=== PATIENT | female | born 1945 | race Caucasian/White ===

== ENCOUNTER 2018-03-08 13:12 | Emergency (ER) | payer MEDICARE, MEDICAID ==
[~2018-03-08 13:12] MED LIST: ALBU18HF2 IH; AMIO200T40 PO; AZIT250T PO; CLOT12CR TP; PRED10TA PO; QUET25TA PO; RIVA20TA PO; ROFL500T7 PO
[2018-03-08 13:15] VITALS: BP 146/86
[2018-03-08] MEDS ORDERED: ipratropium/albuterol 3ml nebule NEB ONE (14:15)
[2018-03-08] MEDS ORDERED: acetaminophen 325mg tablet PO ONE (14:15)
[2018-03-08 14:35] LABS: BASOPHILS % (AUTO) 0.5 % (0-1); EOSINOPHILS # (AUTO) 0.1 X10'3 (0-0.9); HEMATOCRIT 38.4 % (35.0-45.0); HEMOGLOBIN 12.9 g/dl (12.0-16.0); LYMPHOCYTES # (AUTO) 0.9 X10'3 (1.1-4.8); LYMPHOCYTES % (AUTO) 15.9 % (21-51); MEAN CORPUSCULAR HEMOGLOBIN 29.6 PG (27.0-31.0); MEAN CORPUSCULAR HGB CONC 33.5 % (33.0-36.5); MEAN CORPUSCULAR VOLUME 88.3 FL (78-98); MEAN PLATELET VOLUME 7.4 FL (7.4-10.4); MONOCYTES # (AUTO) 0.5 X10'3 (0-0.9); MONOCYTES % (AUTO) 8.2 % (2-12); NEUTROPHILS # (AUTO) 4.2 X10'3 (1.8-7.7); NEUTROPHILS % (AUTO) 73.4 % (42-75); PLATELET COUNT 305 X10'3 (140-440); RED BLOOD COUNT 4.35 X10'6 (4.20-5.60); RED CELL DISTRIBUTION WIDTH 14.3 % (11.5-14.5); WHITE BLOOD COUNT 5.7 X10'3 (4.5-11.0)
[2018-03-08 14:46] LABS: PARTIAL THROMBOPLASTIN TIME 35 SECONDS (22-32); PROTHROMBIN TIME 10.7 SECONDS (9.0-12.0)
[2018-03-08 14:55] LABS: ALANINE AMINOTRANSFERASE 22 U/L (12-78); ALBUMIN 2.8 G/DL (3.4-5.0); ALBUMIN/GLOBULIN RATIO 0.7 (1.1-1.5); ALKALINE PHOSPHATASE 102 IU/L (46-116); ANION GAP 8 (8-16); ASPARTATE AMINO TRANSFERASE 29 U/L (10-37); BILIRUBIN,TOTAL 0.4 MG/DL (0.1-1.0); BLOOD UREA NITROGEN 15 MG/DL (7-18); BUN/CREATININE RATIO 20.5 (6.6-38.0); CALCIUM 8.4 MG/DL (8.5-10.1); CHLORIDE 100 MMOL/L (99-107); CREATININE 0.73 MG/DL (0.40-0.90); GLUCOSE 103 MG/DL (70-104); MAGNESIUM 1.6 MG/DL (1.5-2.4); POTASSIUM 4.2 MMOL/L (3.5-5.1); SODIUM 136 MMOL/L (135-145); TOTAL PROTEIN 6.8 G/DL (6.4-8.2); eGFR 78 ML/MIN
[2018-03-08] MEDS ORDERED: levoFLOXACIN 750MG TABLET PO ONE (15:00)
[2018-03-08] MEDS ORDERED: predniSONE 20 mg tablet PO ONE (15:00)
[2018-03-08] MEDS ORDERED: LEVO500T89 PO (15:02)
[2018-03-08] MEDS ORDERED: PRED20TA PO (15:02)
== END 2018-03-08 15:16 | disposition home or self-care (01) ==
LOC: ER 13:12
DX: J44.9 Chronic obstructive pulmonary disease, unspecified (principal); M79.652 Pain in left thigh; E78.00 Pure hypercholesterolemia, unspecified; K21.9 Gastro-esophageal reflux disease without esophagitis; M19.90 Unspecified osteoarthritis, unspecified site; F17.200 Nicotine dependence, unspecified, uncomplicated; F15.90 Other stimulant use, unspecified, uncomplicated; Z90.710 Acquired absence of both cervix and uterus
CPT/HCPCS: 36415; 71045; 73502; 80053; 83605; 83735; 84145; 85025; 85610; 85730; 87040; 93005; 94640; 94760; 99285; J7512

== ENCOUNTER 2018-04-28 13:04 | Emergency (ER) | payer MEDICARE, MEDICAID ==
[~2018-04-28] VITALS: Ht 162.6 cm; Wt 50.3 kg
[2018-04-28 13:48] VITALS: BP 149/46
[2018-04-28] MEDS ORDERED: cephalexin 500mg capsule PO ONE (14:20)
[2018-04-28] MEDS ORDERED: CEPH500C5 PO (14:23)
== END 2018-04-28 14:49 | disposition home or self-care (01) ==
LOC: ER 13:05
DX: L03.114 Cellulitis of left upper limb (principal); L03.113 Cellulitis of right upper limb; E78.00 Pure hypercholesterolemia, unspecified; J44.9 Chronic obstructive pulmonary disease, unspecified; K21.9 Gastro-esophageal reflux disease without esophagitis; M19.90 Unspecified osteoarthritis, unspecified site; M06.9 Rheumatoid arthritis, unspecified; F15.90 Other stimulant use, unspecified, uncomplicated; Z90.710 Acquired absence of both cervix and uterus; Z79.2 Long term (current) use of antibiotics; Z79.899 Other long term (current) drug therapy; Z60.2 Problems related to living alone
CPT/HCPCS: 99284

== ENCOUNTER 2018-07-08 12:16 | Inpatient (IN) | payer MEDICARE, MEDICAID ==
[~2018-07-08] VITALS: Ht 160 cm; Wt 46.9 kg
[2018-07-08] MEDS ORDERED: levoFLOXACIN-Levaquin 750MG/D5 150 ML IV ONE (12:20)
[2018-07-08] MEDS ORDERED: normal saline 1000ML IV soln IV ONE (12:20)
[2018-07-08 13:33] LABS: HEMATOCRIT 34.4 % (35.0-45.0); HEMOGLOBIN 11.3 g/dl (12.0-16.0); MEAN CORPUSCULAR HEMOGLOBIN 28.8 PG (27.0-31.0); MEAN CORPUSCULAR HGB CONC 32.7 % (33.0-36.5); MEAN CORPUSCULAR VOLUME 88.2 FL (78-98); RED BLOOD COUNT 3.91 X10'6 (4.20-5.60); RED CELL DISTRIBUTION WIDTH 16.1 % (11.5-14.5); WHITE BLOOD COUNT 2.6 X10'3 (4.5-11.0)
[2018-07-08 13:34] LABS: BASOPHILS % (AUTO) 0.7 % (0-1); EOSINOPHILS # (AUTO) 0.1 X10'3 (0-0.9); EOSINOPHILS % (AUTO) 5.8 % (0-6); LYMPHOCYTES # (AUTO) 0.4 X10'3 (1.1-4.8); LYMPHOCYTES % (AUTO) 16.5 % (21-51); MEAN PLATELET VOLUME 8.1 FL (7.4-10.4); MONOCYTES # (AUTO) 0.3 X10'3 (0-0.9); MONOCYTES % (AUTO) 10.5 % (2-12); NEUTROPHILS # (AUTO) 1.7 X10'3 (1.8-7.7); NEUTROPHILS % (AUTO) 66.5 % (42-75); PLATELET COUNT 158 X10'3 (140-440)
[2018-07-08 13:51] LABS: ALANINE AMINOTRANSFERASE 22 U/L (12-78); ALBUMIN 2.4 G/DL (3.4-5.0); ALBUMIN/GLOBULIN RATIO 0.6 (1.1-1.5); ALKALINE PHOSPHATASE 82 IU/L (46-116); ANION GAP 10 (8-16); ASPARTATE AMINO TRANSFERASE 30 U/L (10-37); BILIRUBIN,TOTAL 0.3 MG/DL (0.1-1.0); BLOOD UREA NITROGEN 18 MG/DL (7-18); BUN/CREATININE RATIO 28.6 (6.6-38.0); CALCIUM 7.2 MG/DL (8.5-10.1); CHLORIDE 106 MMOL/L (99-107); CREATININE 0.63 MG/DL (0.40-0.90); GLUCOSE 97 MG/DL (70-104); SODIUM 140 MMOL/L (135-145); TOTAL CARBON DIOXIDE 24.1 MMOL/L (24-32); TOTAL PROTEIN 6.2 G/DL (6.4-8.2); eGFR > 90 ML/MIN
[2018-07-08 14:00] LABS: MAGNESIUM 1.6 MG/DL (1.5-2.4); TROPONIN I < 0.04 NG/ML (0.0-0.05)
[2018-07-08 14:02] LABS: INR 1.1 INR; PROTHROMBIN TIME 10.9 SECONDS (9.0-12.0)
[2018-07-08] MEDS ORDERED: ipratropium/albuterol 3ml nebule NEB ONE (14:05)
[2018-07-08] MEDS ORDERED: oseltamivir phos 75mg capsule PO ONE ×2 (14:05→17:00)
[2018-07-08] MEDS ORDERED: methylPREDNISolone sod succ 125mg/2ml vial IV ONE ×3 (14:05→17:15)
[2018-07-08 14:09] LABS: CLARITY,URINE SLIGHTLY CLOUDY (Clear); COLOR,URINE YELLOW (Yellow); GLUCOSE, URINE NEGATIVE (Neg); KETONES,URINE NEGATIVE (Neg); LEUKOCYTE ESTERASE ,URINE NEGATIVE (Neg); NITRITES, URINE NEGATIVE (Neg); OCCULT BLOOD,URINE MODERATE (Neg); PROTEIN,URINE 30 mg/dl (Neg); UROBILINOGEN,URINE >=8.0 E.U/dL (0.2-1.0)
[2018-07-08 14:10] LABS: PLATELET ESTIMATE NORMAL; TOTAL CELLS COUNTED 100
[2018-07-08 14:11] LABS: ANISOCYTOSIS 1+; TOXIC GRANULATION 1+
[2018-07-08 14:41] LABS: UA COLLECTION TYPE OTHER
--- NOTE | 2018-07-08 14:55 | NUR ---
PT SLEEPING WELL. MUCH MORE COMFORTABLE AT THIS TIME.
[2018-07-08 14:57] LABS: BACTERIA,URINE 1+ /HPF (Neg); MUCUS STRANDS NONE SEEN /LPF (Neg); SQUAMOUS EPITHELIAL CELL,UR MANY /LPF (FEW); WBC,URINE NONE SEEN /HPF (0-4)
--- NOTE | 2018-07-08 15:48 | NUR ---
hospitalist seeing pt
[2018-07-08] MEDS ORDERED: acetaminophen 325mg tablet PO PRN (16:10)
[2018-07-08] MEDS ORDERED: magnesium 4gm in 100ml NS 100 ML IV PRN (16:10)
[2018-07-08] MEDS ORDERED: potassium Cl 40MEQ/NS 500ml 500 ML IV PRN ×2 (16:10)
[2018-07-08] MEDS ORDERED: potassium Cl 20 mEq SR tablet PO PRN ×2 (16:10)
[2018-07-08] MEDS ORDERED: magnesium Cl slow-release 64mg tablet PO PRN (16:10)
[2018-07-08] MEDS ORDERED: ondansetron/PF 4mg/2ml inj IV PRN (16:10)
[2018-07-08] MEDS: normal saline 1000ml 1,000 ML IV SCH (16:22)
--- NOTE | 2018-07-08 19:10 | NUR ---
Patient in room PCU 3022. I have received report from Allen BENTON and had the opportunity to ask questions and assume patient care.
[2018-07-08] MEDS ORDERED: RIVA20TA PO (19:12)
--- NOTE | 2018-07-08 19:20 | NUR ---
Patient arrived on PCU.
[2018-07-08 19:30] VITALS: BP 160/85
[2018-07-08] MEDS: heparin, porcine 5000 units/ml vial SQ SCH (21:29)
[2018-07-08 23:00] VITALS: BP 161/97
--- NOTE | 2018-07-09 00:30 | NUR ---
New telephone order from Dr. Sung. Spoke to Dr. Sung regarding patient blood pressure of 161/97, and new onset atrial flutter in 130s. Dr. Sung ordered Cardizem 120mg PO Once Now.
[2018-07-09] MEDS ORDERED: diltiazem CD 120mg capsule (once-daily) PO ONE (00:40)
[2018-07-09] MEDS: normal saline 1000ml 1,000 ML IV SCH (02:06)
[2018-07-09 03:00] VITALS: BP 144/98
--- NOTE | 2018-07-09 06:00 | NUR ---
Patient in room U 3022. I have received report from SERENITY Palacios and had the opportunity to ask questions and assume patient care. Addendum: 07/09/18 at 0655 by Stephania Keenan RN Amended: Links added.
--- NOTE | 2018-07-09 06:25 | NUR ---
Problems reprioritized. Patient report given, questions answered & plan of care reviewed with Stephania BENTON.
[2018-07-09 07:00] VITALS: BP 133/87
[2018-07-09 07:03] LABS: HEMATOCRIT 39.8 % (35.0-45.0); HEMOGLOBIN 13.1 g/dl (12.0-16.0); MEAN CORPUSCULAR HEMOGLOBIN 28.9 PG (27.0-31.0); MEAN CORPUSCULAR VOLUME 87.6 FL (78-98); MEAN PLATELET VOLUME 8.6 FL (7.4-10.4); PLATELET COUNT 189 X10'3 (140-440); RED BLOOD COUNT 4.55 X10'6 (4.20-5.60); RED CELL DISTRIBUTION WIDTH 15.6 % (11.5-14.5)
[2018-07-09 07:12] LABS: ALBUMIN 2.6 G/DL (3.4-5.0); ANION GAP 10 (8-16); BLOOD UREA NITROGEN 12 MG/DL (7-18); BUN/CREATININE RATIO 17.6 (6.6-38.0); CHLORIDE 103 MMOL/L (99-107); CREATININE 0.68 MG/DL (0.40-0.90); GLUCOSE 140 MG/DL (70-104); MAGNESIUM 1.5 MG/DL (1.5-2.4); POTASSIUM 3.7 MMOL/L (3.5-5.1); SODIUM 138 MMOL/L (135-145); TOTAL CARBON DIOXIDE 24.7 MMOL/L (24-32); eGFR 84 ML/MIN
[2018-07-09] MEDS ORDERED: azithromycin/NS 500mg/250ml 250 ML IV SCH (08:00)
[2018-07-09] MEDS: K and/or MAG REPLACEMENT MC SCH (08:00)
[2018-07-09] MEDS: CefTRIAXone/D5W-Rocephin 1gm 50 ML IV SCH (08:07)
[2018-07-09] MEDS: heparin, porcine 5000 units/ml vial SQ SCH (08:09)
[2018-07-09] MEDS ORDERED: pneumococcal 23-VAL P-sac vacc 25 mcg/0.5ml vial IMVAC ONE (10:00)
[2018-07-09 11:00] VITALS: BP 126/88
[2018-07-09 11:01] LABS: ANISOCYTOSIS 1+; PLATELET ESTIMATE NORMAL; TOTAL CELLS COUNTED 100
[2018-07-09] MEDS: ipratropium/albuterol 3ml nebule NEB SCH ×4 (12:30→23:49)
[2018-07-09 15:00] VITALS: BP 145/73
[2018-07-09] MEDS: oseltamivir phos 75mg capsule PO SCH ×2 (15:44→19:58)
[2018-07-09] MEDS: rivaroxaban 20mg tablet PO SCH (15:44)
[2018-07-09] MEDS: guaiFENesin 200 MG/10 ML oral syrup UD cup PO SCH ×2 (15:44→19:58)
[2018-07-09] MEDS: methylPREDNISolone sod succ 125mg/2ml vial IV SCH ×2 (15:45→19:58)
[2018-07-09] MEDS: Potassium Cl inj 20 MEQ in normal saline 1000ml 1,000 ML IV SCH (15:45)
[2018-07-09 18:00] VITALS: BP 154/77
--- NOTE | 2018-07-09 18:29 | NUR ---
Problems reprioritized. Patient report given, questions answered & plan of care reviewed with SERENITY Freed. Addendum: 07/09/18 at 1829 by Stephania Keenan RN Amended: Links added.
--- NOTE | 2018-07-09 18:39 | NUR ---
Patient in room PCU 3022. I have received report from Stephania BENTON and had the opportunity to ask questions and assume patient care.
[2018-07-09] MEDS: QUEtiapine 25mg tablet PO SCH (21:28)
[2018-07-09 22:00] VITALS: BP 141/69
[2018-07-10 02:00] VITALS: BP 137/65
[2018-07-10] MEDS: methylPREDNISolone sod succ 125mg/2ml vial IV SCH ×3 (02:09→16:16)
[2018-07-10] MEDS: guaiFENesin 200 MG/10 ML oral syrup UD cup PO SCH ×4 (02:09→20:22)
[2018-07-10] MEDS: ipratropium/albuterol 3ml nebule NEB SCH ×6 (03:35→23:55)
[2018-07-10] MEDS: Potassium Cl inj 20 MEQ in normal saline 1000ml 1,000 ML IV SCH ×2 (05:33→18:03)
[2018-07-10 06:00] VITALS: BP 160/88
--- NOTE | 2018-07-10 06:26 | NUR ---
Patient in room PCU 3022. I have received report from Lourdes BENTON and had the opportunity to ask questions and assume patient care.
[2018-07-10 07:03] LABS: ALBUMIN 2.5 G/DL (3.4-5.0); ANION GAP 10 (8-16); BLOOD UREA NITROGEN 20 MG/DL (7-18); BUN/CREATININE RATIO 31.7 (6.6-38.0); CALCIUM 7.9 MG/DL (8.5-10.1); CHLORIDE 106 MMOL/L (99-107); CREATININE 0.63 MG/DL (0.40-0.90); GLUCOSE 150 MG/DL (70-104); MAGNESIUM 1.7 MG/DL (1.5-2.4); POTASSIUM 3.8 MMOL/L (3.5-5.1); SODIUM 141 MMOL/L (135-145); eGFR > 90 ML/MIN
[2018-07-10] MEDS: pantoprazole 40mg Tablet.DR PO SCH (07:14)
[2018-07-10] MEDS: CefTRIAXone/D5W-Rocephin 1gm 50 ML IV SCH (07:15)
[2018-07-10] MEDS: rivaroxaban 20mg tablet PO SCH (07:15)
[2018-07-10] MEDS: oseltamivir phos 75mg capsule PO SCH ×2 (07:17→20:22)
[2018-07-10 07:26] LABS: BASOPHILS % (AUTO) 0 % (0-1); EOSINOPHILS % (AUTO) 0 % (0-6); HEMOGLOBIN 12.1 g/dl (12.0-16.0); LYMPHOCYTES # (AUTO) 0.2 X10'3 (1.1-4.8); LYMPHOCYTES % (AUTO) 7.4 % (21-51); MEAN CORPUSCULAR HEMOGLOBIN 28.7 PG (27.0-31.0); MEAN CORPUSCULAR HGB CONC 32.5 % (33.0-36.5); MEAN CORPUSCULAR VOLUME 88.3 FL (78-98); MEAN PLATELET VOLUME 8.5 FL (7.4-10.4); MONOCYTES # (AUTO) 0.1 X10'3 (0-0.9); MONOCYTES % (AUTO) 2.5 % (2-12); NEUTROPHILS # (AUTO) 2.9 X10'3 (1.8-7.7); NEUTROPHILS % (AUTO) 90.1 % (42-75); PLATELET COUNT 175 X10'3 (140-440); RED BLOOD COUNT 4.19 X10'6 (4.20-5.60); RED CELL DISTRIBUTION WIDTH 16.1 % (11.5-14.5); WHITE BLOOD COUNT 3.2 X10'3 (4.5-11.0)
--- NOTE | 2018-07-10 07:33 | NUR ---
Problems reprioritized. Patient report given, questions answered & plan of care reviewed with Nida BENTON.
[2018-07-10] MEDS: K and/or MAG REPLACEMENT MC SCH (08:00)
[2018-07-10] MEDS ORDERED: diltiazem 5mg/ml 5ml inj. IV STA (10:45)
[2018-07-10 11:00] VITALS: BP 166/84
[2018-07-10] MEDS: diltiazem CD 180mg cap (once-daily) PO SCH (11:20)
[2018-07-10 15:00] VITALS: BP 128/81
--- NOTE | 2018-07-10 18:26 | NUR ---
Problems reprioritized. Patient report given, questions answered & plan of care reviewed with Dannielle BENTON.
--- NOTE | 2018-07-10 18:45 | NUR ---
Patient in room PCU 3022. I have received report from SERENITY Alva and had the opportunity to ask questions and assume patient care.
[2018-07-10 19:00] VITALS: BP 135/73
[2018-07-10] MEDS: QUEtiapine 25mg tablet PO SCH (20:22)
[2018-07-10 23:00] VITALS: BP 116/66
[2018-07-11] MEDS: methylPREDNISolone sod succ 125mg/2ml vial IV SCH ×2 (00:11→08:19)
[2018-07-11 02:58] VITALS: BP 120/71
[2018-07-11] MEDS: guaiFENesin 200 MG/10 ML oral syrup UD cup PO SCH ×2 (02:59→08:19)
[2018-07-11] MEDS: ipratropium/albuterol 3ml nebule NEB SCH ×3 (03:21→10:54)
[2018-07-11] MEDS: Potassium Cl inj 20 MEQ in normal saline 1000ml 1,000 ML IV SCH ×2 (04:00→08:27)
--- NOTE | 2018-07-11 06:23 | NUR ---
Problems reprioritized. Patient report given, questions answered & plan of care reviewed with SERENITY Mendenhall.
[2018-07-11 07:12] LABS: ALBUMIN 2.3 G/DL (3.4-5.0); ANION GAP 11 (8-16); BLOOD UREA NITROGEN 21 MG/DL (7-18); CALCIUM 7.6 MG/DL (8.5-10.1); CHLORIDE 107 MMOL/L (99-107); GLUCOSE 139 MG/DL (70-104); MAGNESIUM 1.7 MG/DL (1.5-2.4); POTASSIUM 3.7 MMOL/L (3.5-5.1); SODIUM 142 MMOL/L (135-145); TOTAL CARBON DIOXIDE 24.3 MMOL/L (24-32); eGFR 82 ML/MIN
[2018-07-11 07:50] VITALS: BP 135/69
[2018-07-11] MEDS: K and/or MAG REPLACEMENT MC SCH (08:00)
[2018-07-11] MEDS: diltiazem CD 180mg cap (once-daily) PO SCH (08:19)
[2018-07-11] MEDS: pantoprazole 40mg Tablet.DR PO SCH (08:19)
[2018-07-11] MEDS: rivaroxaban 20mg tablet PO SCH (08:19)
[2018-07-11] MEDS: oseltamivir phos 75mg capsule PO SCH (08:19)
[2018-07-11] MEDS: CefTRIAXone/D5W-Rocephin 1gm 50 ML IV SCH (08:19)
[2018-07-11] MEDS ORDERED: DILT180C66 PO (10:33)
[2018-07-11] MEDS ORDERED: ALBU6.7H INH (10:33)
[2018-07-11] MEDS ORDERED: PRED10TA23 PO (10:33)
[2018-07-11] MEDS ORDERED: FAMO-128 PO (10:33)
[2018-07-11] MEDS ORDERED: TAM75C PO (10:33)
[2018-07-11] MEDS ORDERED: CEPH500C5 PO (10:49)
[2018-07-11 11:00] VITALS: BP 123/75
--- NOTE | 2018-07-11 12:58 | NUR ---
PATIENT DISCHARGED HOME WITH CAREGIVER. ALL BELONGINGS TAKEN FROM ROOM. STABLE AND APPROPRIATE FOR DISCHARGE. IV REMOVED. COGNOS BI DEVELOPER REMOVED. MEDICATIONS DELIVERED VIA VANESSA BEDSIDE.
== END 2018-07-11 13:00 | disposition home or self-care (01) | DRG 194 ==
LOC: ER 12:17 → ED HOLD 16:06 → PCU 3S 19:20
PROVIDERS: ADMIT Internal Medicine; ATTEND Internal Medicine
PROC: 3E02340 Introduction of Influenza Vaccine into Muscle, Percutaneous Approach (ICD-10-PCS; principal; 2018-07-09)
PROC: 3E0234Z Introduction of Serum, Toxoid and Vaccine into Muscle, Percutaneous Approach (ICD-10-PCS; 2018-07-09)
DX: J09.X2 Influenza due to identified novel influenza A virus with other respiratory manifestations (principal); J44.1 Chronic obstructive pulmonary disease with (acute) exacerbation; I48.0 Paroxysmal atrial fibrillation; E78.00 Pure hypercholesterolemia, unspecified; K21.9 Gastro-esophageal reflux disease without esophagitis; M06.9 Rheumatoid arthritis, unspecified; Z60.2 Problems related to living alone; M19.90 Unspecified osteoarthritis, unspecified site; R09.02 Hypoxemia; F17.210 Nicotine dependence, cigarettes, uncomplicated; F15.90 Other stimulant use, unspecified, uncomplicated; Z66 Do not resuscitate; Z90.710 Acquired absence of both cervix and uterus; Z23 Encounter for immunization; Z72.89 Other problems related to lifestyle; Z79.899 Other long term (current) drug therapy; Z79.01 Long term (current) use of anticoagulants; Z81.3 Family history of other psychoactive substance abuse and dependence; Z82.49 Family history of ischemic heart disease and other diseases of the circulatory system; Z80.9 Family history of malignant neoplasm, unspecified; Z71.6 Tobacco abuse counseling
CPT/HCPCS: 36415; 71045; 80048; 80053; 81001; 83605; 83735; 83880; 84145; 84484; 85025; 85610; 87040; 87070; 87502; 87503; 90732; 93005; 94640; 94760; 96365; 96375; 97110; 97116; 97162; 99285; G0378; J0456; J0696; J1644; J1956; J2930; J3480; J3490; J7030

== ENCOUNTER 2018-10-21 01:00 | Emergency (ER) | payer MEDICARE, MEDICAID ==
[~2018-10-21] VITALS: Ht 160 cm; Wt 52.3 kg
[~2018-10-21 01:00] MED LIST changes: -ALBU18HF2 IH; +ALBU6.7H INH; -AMIO200T40 PO; -AZIT250T PO; -CLOT12CR TP; +DILT180C66 PO; +FAMO-128 PO; -PRED10TA PO; -QUET25TA PO; -ROFL500T7 PO; +TAM75C PO
[2018-10-21 01:27] LABS: BASOPHILS # (AUTO) 0.1 X10'3 (0-0.2); BASOPHILS % (AUTO) 1.1 % (0-1); EOSINOPHILS # (AUTO) 0.2 X10'3 (0-0.9); EOSINOPHILS % (AUTO) 3.2 % (0-6); HEMATOCRIT 39.6 % (35.0-45.0); HEMOGLOBIN 13.1 g/dl (12.0-16.0); LYMPHOCYTES # (AUTO) 1.3 X10'3 (1.1-4.8); LYMPHOCYTES % (AUTO) 18.3 % (21-51); MEAN CORPUSCULAR HEMOGLOBIN 29.6 PG (27.0-31.0); MEAN CORPUSCULAR HGB CONC 33.1 g/dL (33.0-36.5); MEAN CORPUSCULAR VOLUME 89.5 FL (78-98); MONOCYTES # (AUTO) 0.5 X10'3 (0-0.9); MONOCYTES % (AUTO) 6.8 % (2-12); NEUTROPHILS # (AUTO) 4.9 X10'3 (1.8-7.7); NEUTROPHILS % (AUTO) 70.6 % (42-75); PLATELET COUNT 245 X10'3 (140-440); RED BLOOD COUNT 4.43 X10'6 (4.20-5.60); RED CELL DISTRIBUTION WIDTH 14.7 % (11.5-14.5); WHITE BLOOD COUNT 6.9 X10'3 (4.5-11.0)
[2018-10-21 01:42] LABS: ALANINE AMINOTRANSFERASE 20 U/L (12-78); ALBUMIN/GLOBULIN RATIO 0.8 (1.1-1.5); ALKALINE PHOSPHATASE 105 IU/L (46-116); ANION GAP 6 (8-16); ASPARTATE AMINO TRANSFERASE 24 U/L (10-37); BILIRUBIN,TOTAL 0.4 MG/DL (0.1-1.0); BLOOD UREA NITROGEN 18 MG/DL (7-18); BUN/CREATININE RATIO 22.5 (6.6-38.0); CALCIUM 8.6 MG/DL (8.5-10.1); CHLORIDE 105 MMOL/L (99-107); GLUCOSE 128 MG/DL (70-104); POTASSIUM 4.1 MMOL/L (3.5-5.1); SODIUM 139 MMOL/L (135-145); TOTAL CARBON DIOXIDE 27.6 MMOL/L (24-32); TOTAL PROTEIN 6.7 G/DL (6.4-8.2); eGFR 70 ML/MIN
[2018-10-21 01:43] LABS: INR 1.1 INR; PARTIAL THROMBOPLASTIN TIME 31 SECONDS (22-32); PROTHROMBIN TIME 10.7 SECONDS (9.0-12.0)
[2018-10-21] MEDS ORDERED: benzonatate 100mg capsule PO ONE (02:05)
[2018-10-21] MEDS ORDERED: azithromycin 250mg tablet PO ONE (02:05)
[2018-10-21] MEDS ORDERED: BENZ-16 PO (02:06)
[2018-10-21] MEDS ORDERED: AZIT-63 PO (02:06)
[2018-10-21 02:11] VITALS: BP 126/92
== END 2018-10-21 02:22 | disposition home or self-care (01) ==
LOC: ER 01:01
DX: R06.02 Shortness of breath (principal); R53.1 Weakness; R05 Cough; R50.9 Fever, unspecified; E78.00 Pure hypercholesterolemia, unspecified; J44.9 Chronic obstructive pulmonary disease, unspecified; K21.9 Gastro-esophageal reflux disease without esophagitis; M19.90 Unspecified osteoarthritis, unspecified site; M06.9 Rheumatoid arthritis, unspecified; F15.90 Other stimulant use, unspecified, uncomplicated; Z90.710 Acquired absence of both cervix and uterus; Z98.890 Other specified postprocedural states; Z79.899 Other long term (current) drug therapy; Z60.2 Problems related to living alone
CPT/HCPCS: 36415; 71045; 80053; 84484; 85025; 85610; 85730; 93005; 99284

== ENCOUNTER 2019-07-19 13:53 | Emergency (ER) | payer MEDICARE, MEDICAID ==
[~2019-07-19] VITALS: Ht 162.6 cm; Wt 50.8 kg
[~2019-07-19 13:53] MED LIST changes: -ALBU6.7H INH; +ALBU6.7H9 INH
[2019-07-19] MEDS ORDERED: acetaminophen 325mg tablet PO ONE (15:25)
[2019-07-19] MEDS ORDERED: ibuprofen 200mg tablet PO ONE (15:25)
[2019-07-19] MEDS ORDERED: LIDOcaine 5% patch TP SCH (15:25)
[2019-07-19 15:49] LABS: BASOPHILS # (AUTO) 0.1 X10'3 (0-0.2); BASOPHILS % (AUTO) 1.3 % (0-1); EOSINOPHILS # (AUTO) 0.2 X10'3 (0-0.9); EOSINOPHILS % (AUTO) 4.2 % (0-6); HEMATOCRIT 44.8 % (35.0-45.0); HEMOGLOBIN 14.8 g/dl (12.0-16.0); LYMPHOCYTES # (AUTO) 1.3 X10'3 (1.1-4.8); LYMPHOCYTES % (AUTO) 28.5 % (21-51); MEAN CORPUSCULAR HEMOGLOBIN 31.2 PG (27.0-31.0); MEAN CORPUSCULAR VOLUME 94.3 FL (78-98); MEAN PLATELET VOLUME 8.5 FL (7.4-10.4); MONOCYTES # (AUTO) 0.6 X10'3 (0-0.9); MONOCYTES % (AUTO) 13.2 % (2-12); NEUTROPHILS # (AUTO) 2.5 X10'3 (1.8-7.7); NEUTROPHILS % (AUTO) 52.8 % (42-75); PLATELET COUNT 159 X10'3 (140-440); RED BLOOD COUNT 4.76 X10'6 (4.20-5.60); RED CELL DISTRIBUTION WIDTH 14.6 % (11.5-14.5); WHITE BLOOD COUNT 4.7 X10'3 (4.5-11.0)
[2019-07-19 15:58] LABS: ALBUMIN 3.4 G/DL (3.4-5.0); ANION GAP 7 (8-16); BLOOD UREA NITROGEN 23 MG/DL (7-18); BUN/CREATININE RATIO 32.4 (6.6-38.0); CHLORIDE 109 MMOL/L (99-107); CREATININE 0.71 MG/DL (0.40-0.90); GLUCOSE 116 MG/DL (70-104); POTASSIUM 5.3 MMOL/L (3.5-5.1); SODIUM 148 MMOL/L (135-145); TOTAL CARBON DIOXIDE 32.4 MMOL/L (24-32); eGFR 80 ML/MIN
[2019-07-19] MEDS ORDERED: normal saline 1000ml 1,000 ML IV ONE (16:05)
[2019-07-19] MEDS ORDERED: iohexol 300mg/ml 100ml inj. ONE (17:06)
[2019-07-19 18:30] VITALS: BP 140/81
[2019-07-19 19:06] LABS: CLARITY,URINE CLEAR (Clear); COLOR,URINE YELLOW (Yellow); GLUCOSE, URINE NEGATIVE (Neg); KETONES,URINE NEGATIVE (Neg); LEUKOCYTE ESTERASE ,URINE NEGATIVE (Neg); NITRITES, URINE NEGATIVE (Neg); OCCULT BLOOD,URINE TRACE-INTACT (Neg); PROTEIN,URINE NEGATIVE (Neg); UROBILINOGEN,URINE 0.2 E.U/dL (0.2-1.0)
[2019-07-19 19:22] LABS: UA COLLECTION TYPE CLN CATCH MIDSTREAM
[2019-07-19 19:23] LABS: BACTERIA,URINE FEW /HPF (Neg); RBC,URINE 0-2 /HPF (0-2); SQUAMOUS EPITHELIAL CELL,UR MODERATE /LPF (FEW); WBC,URINE 0-4 /HPF (0-4)
[2019-07-19] MEDS ORDERED: IBUP-1985 PO (19:28)
[2019-07-19] MEDS ORDERED: LIDO700A32 TOP (19:28)
[2019-07-19] MEDS ORDERED: ACET650T2 PO (19:28)
== END 2019-07-19 19:46 | disposition home or self-care (01) ==
LOC: ER 13:53
DX: M54.9 Dorsalgia, unspecified (principal); E87.5 Hyperkalemia; R10.9 Unspecified abdominal pain; R11.10 Vomiting, unspecified; E78.00 Pure hypercholesterolemia, unspecified; J44.9 Chronic obstructive pulmonary disease, unspecified; K21.9 Gastro-esophageal reflux disease without esophagitis; M06.9 Rheumatoid arthritis, unspecified; F15.90 Other stimulant use, unspecified, uncomplicated; Z90.710 Acquired absence of both cervix and uterus; Z98.890 Other specified postprocedural states; Z79.899 Other long term (current) drug therapy; Z86.19 Personal history of other infectious and parasitic diseases
CPT/HCPCS: 36415; 74177; 80048; 81001; 85025; 93005; 96360; 99284; J7030; Q9967

== ENCOUNTER 2019-09-27 09:15 | Emergency (ER) | payer MEDICARE, MEDICAID ==
[~2019-09-27] VITALS: Ht 160 cm; Wt 50.0 kg
[~2019-09-27 09:15] MED LIST changes: +IBUP-1985 PO; +LIDO700A32 TOP
[2019-09-27] MEDS ORDERED: methylPREDNISolone sod succ 125mg/2ml vial IV ONE (09:30)
[2019-09-27] MEDS ORDERED: albuterol 2.5 MG/3 ML nebule NEB ONE (09:30)
[2019-09-27 10:14] LABS: BASOPHILS % (AUTO) 0.9 % (0-1); EOSINOPHILS # (AUTO) 0.1 X10'3 (0-0.9); EOSINOPHILS % (AUTO) 1.5 % (0-6); HEMATOCRIT 43.6 % (35.0-45.0); HEMOGLOBIN 14.4 g/dl (12.0-16.0); LYMPHOCYTES # (AUTO) 0.9 X10'3 (1.1-4.8); MEAN CORPUSCULAR HEMOGLOBIN 30.8 PG (27.0-31.0); MEAN CORPUSCULAR HGB CONC 33.1 g/dL (33.0-36.5); MEAN CORPUSCULAR VOLUME 93.2 FL (78-98); MEAN PLATELET VOLUME 8.5 FL (7.4-10.4); MONOCYTES # (AUTO) 0.3 X10'3 (0-0.9); MONOCYTES % (AUTO) 7.3 % (2-12); NEUTROPHILS # (AUTO) 3.5 X10'3 (1.8-7.7); NEUTROPHILS % (AUTO) 72.3 % (42-75); PLATELET COUNT 153 X10'3 (140-440); RED BLOOD COUNT 4.68 X10'6 (4.20-5.60); RED CELL DISTRIBUTION WIDTH 14.2 % (11.5-14.5); WHITE BLOOD COUNT 4.8 X10'3 (4.5-11.0)
[2019-09-27] MEDS ORDERED: azithromycin 250mg tablet PO ONE (10:20)
[2019-09-27 10:26] LABS: ALANINE AMINOTRANSFERASE 91 U/L (12-78); ALBUMIN 3.4 G/DL (3.4-5.0); ALBUMIN/GLOBULIN RATIO 0.9 (1.1-1.5); ALKALINE PHOSPHATASE 92 IU/L (46-116); ANION GAP 7 (8-16); ASPARTATE AMINO TRANSFERASE 76 U/L (10-37); BILIRUBIN,TOTAL 0.7 MG/DL (0.1-1.0); BLOOD UREA NITROGEN 16 MG/DL (7-18); BUN/CREATININE RATIO 20.5 (6.6-38.0); CALCIUM 8.6 MG/DL (8.5-10.1); CHLORIDE 105 MMOL/L (99-107); CREATININE 0.78 MG/DL (0.40-0.90); GLUCOSE 109 MG/DL (70-104); POTASSIUM 4.2 MMOL/L (3.5-5.1); SODIUM 142 MMOL/L (135-145); TOTAL CARBON DIOXIDE 30.1 MMOL/L (24-32); eGFR 72 ML/MIN
[2019-09-27 10:35] LABS: C-REACTIVE PROTEIN < 0.05 MG/DL (0.0-0.5)
--- NOTE | 2019-09-27 10:47 | NUR ---
Per pt's request, attempted to contact Charisma. There was not answer so a VM was left asking her to please call back. Pt aware
[2019-09-27] MEDS ORDERED: AZIT-63 PO (10:57)
[2019-09-27] MEDS ORDERED: PRED20TA PO (10:57)
[2019-09-27] MEDS ORDERED: ALB0.5UD IH (10:57)
--- NOTE | 2019-09-27 11:42 | NUR ---
attempted to contact second emergency contact for a ride home, no answer, pablo left
[2019-09-27 12:05] VITALS: BP 133/71
== END 2019-09-27 12:38 | disposition home or self-care (01) ==
LOC: ER 09:16
DX: J44.1 Chronic obstructive pulmonary disease with (acute) exacerbation (principal); E78.00 Pure hypercholesterolemia, unspecified; K21.9 Gastro-esophageal reflux disease without esophagitis; M06.9 Rheumatoid arthritis, unspecified; F15.90 Other stimulant use, unspecified, uncomplicated; Z90.710 Acquired absence of both cervix and uterus; Z98.890 Other specified postprocedural states; Z79.2 Long term (current) use of antibiotics; Z79.899 Other long term (current) drug therapy
CPT/HCPCS: 36415; 71045; 80053; 83880; 84145; 85025; 86140; 93005; 94640; 99285; J2930

== ENCOUNTER 2019-10-15 05:09 | Inpatient (IN) | payer MEDICARE, MEDICAID ==
[2019-10-15] VITALS (14 sets, daily range): BP systolic 85–133; BP diastolic 50–74
[~2019-10-15] VITALS: Ht 162.6 cm; Wt 50.0 kg
[~2019-10-15 05:09] MED LIST changes: +ALB0.5UD IH; +AZIT-63 PO; +PRED20TA PO
[2019-10-15] MEDS ORDERED: morphine 4 MG/ML inj SYRINge IV ONE (05:25)
[2019-10-15 05:45] LABS: BASOPHILS % (AUTO) 0.8 % (0-1); EOSINOPHILS # (AUTO) 0.1 X10'3 (0-0.9); EOSINOPHILS % (AUTO) 2.1 % (0-6); HEMATOCRIT 37.5 % (35.0-45.0); HEMOGLOBIN 12.3 g/dl (12.0-16.0); LYMPHOCYTES # (AUTO) 0.7 X10'3 (1.1-4.8); LYMPHOCYTES % (AUTO) 15.2 % (21-51); MEAN CORPUSCULAR HEMOGLOBIN 30.9 PG (27.0-31.0); MEAN CORPUSCULAR HGB CONC 32.9 g/dL (33.0-36.5); MEAN CORPUSCULAR VOLUME 93.9 FL (78-98); MEAN PLATELET VOLUME 8.4 FL (7.4-10.4); MONOCYTES # (AUTO) 0.4 X10'3 (0-0.9); MONOCYTES % (AUTO) 10.1 % (2-12); NEUTROPHILS # (AUTO) 3.1 X10'3 (1.8-7.7); NEUTROPHILS % (AUTO) 71.8 % (42-75); PLATELET COUNT 142 X10'3 (140-440); RED BLOOD COUNT 3.99 X10'6 (4.20-5.60); RED CELL DISTRIBUTION WIDTH 14.3 % (11.5-14.5); WHITE BLOOD COUNT 4.4 X10'3 (4.5-11.0)
[2019-10-15 05:54] LABS: PARTIAL THROMBOPLASTIN TIME 34 SECONDS (22-32)
[2019-10-15 06:00] LABS: ALANINE AMINOTRANSFERASE 52 U/L (12-78); ALBUMIN 2.8 G/DL (3.4-5.0); ALKALINE PHOSPHATASE 88 IU/L (46-116); ANION GAP 7 (8-16); ASPARTATE AMINO TRANSFERASE 51 U/L (10-37); BILIRUBIN,TOTAL 0.4 MG/DL (0.1-1.0); BLOOD UREA NITROGEN 25 MG/DL (7-18); BUN/CREATININE RATIO 33.3 (6.6-38.0); CALCIUM 7.5 MG/DL (8.5-10.1); CHLORIDE 112 MMOL/L (99-107); CREATININE 0.75 MG/DL (0.40-0.90); GLUCOSE 96 MG/DL (70-104); POTASSIUM 4.2 MMOL/L (3.5-5.1); SODIUM 144 MMOL/L (135-145); TOTAL PROTEIN 5.6 G/DL (6.4-8.2); eGFR 75 ML/MIN
[2019-10-15] MEDS ORDERED: diltiazem 5mg/ml 5ml inj. IV ONE (06:15)
[2019-10-15] MEDS ORDERED: morphine 4 MG/ML inj SYRINge IV PRN ×2 (06:55→08:30)
[2019-10-15] MEDS ORDERED: ondansetron/PF 4mg/2ml inj IV PRN ×3 (06:55→08:30)
[2019-10-15 07:31] LABS: CLARITY,URINE SLIGHTLY CLOUDY (Clear); COLOR,URINE STRAW (Yellow); GLUCOSE, URINE NEGATIVE (Neg); KETONES,URINE NEGATIVE (Neg); LEUKOCYTE ESTERASE ,URINE NEGATIVE (Neg); NITRITES, URINE POSITIVE (Neg); OCCULT BLOOD,URINE TRACE-LYSED (Neg); PH,URINE 5.5 (4.8-8.0); PROTEIN,URINE NEGATIVE (Neg); UROBILINOGEN,URINE 0.2 E.U/dL (0.2-1.0)
[2019-10-15 07:37] LABS: UA COLLECTION TYPE FOLEY CATH
[2019-10-15 07:40] LABS: URINE AMPHETAMINE SCREEN POSITIVE (Neg); URINE BARBITUATE SCREEN NEGATIVE (Neg); URINE BENZODIAZEPINES SCREEN NEGATIVE (Neg); URINE CANNABINOID SCREEN NEGATIVE (Neg); URINE COCAINE SCREEN NEGATIVE (Neg); URINE METHADONE SCREEN NEGATIVE (Neg); URINE OPIATE SCREEN POSITIVE (Neg); URINE PHENCYCLIDINE SCREEN NEGATIVE (Neg)
[2019-10-15 07:41] LABS: BACTERIA,URINE 4+ /HPF (Neg); MUCUS STRANDS NONE SEEN /LPF (Neg); RBC,URINE 0-2 /HPF (0-2); SQUAMOUS EPITHELIAL CELL,UR FEW /LPF (FEW); WBC,URINE 0-4 /HPF (0-4)
[2019-10-15] MEDS ORDERED: ringers solution, lacted 1,000 ML IV SCH (08:28)
[2019-10-15] MEDS ORDERED: mag hydrox/Alum hydrox/simeth 30ml oral suspension PO PRN (08:30)
[2019-10-15] MEDS ORDERED: meperidine/PF 25mg/ml syringe IV PRN ×3 (08:30)
[2019-10-15] MEDS ORDERED: acetaminophen 325mg tablet PO PRN ×2 (08:30)
[2019-10-15] MEDS ORDERED: morphine 2 MG/ML inj. syringe IV PRN ×3 (08:30)
[2019-10-15] MEDS ORDERED: proCHLORperazine 10 MG/2 ml inj IV PRN (08:30)
[2019-10-15] MEDS ORDERED: magnesium hydroxide 30ml (MOM) UD suspension PO PRN (08:30)
[2019-10-15] MEDS ORDERED: ipratropium/albuterol 3ml nebule IH ONE (08:40)
[2019-10-15] MEDS ORDERED: BUPIVAcaine/PF 2.5 mg/ml (0.25%) 30ml vial ONE (09:09)
[2019-10-15] MEDS ORDERED: ceFAZolin 1000mg inj ONE ×3 (09:09→09:42)
[2019-10-15] MEDS ORDERED: neostigmine methylsulfate 1 MG/ML 10ml vial ONE (09:20)
[2019-10-15] MEDS ORDERED: fentaNYL/PF 50MCG/1 ML 2ML syringe ONE (09:29)
[2019-10-15] MEDS ORDERED: MIDAZolam 5mg/5ml vial ONE (09:30)
--- NOTE | 2019-10-15 10:45 | NUR ---
Received from OR via BED , accompanied by Anesthesiologist DR SHAW and report given by Anesthesiolgist. PATIENT WAKING UP, DENIES PAIN, V/S STABLE, 20G PIV RUE, SCD ON, DRESSING TO RIGHT HIP CDI, F/C DRAINING CLEAR YELLOW URINE, SENSATIONS T10, PATIENT WILL BE PLACED ON TELE AND CONTINOUS PULSE OX WHEN TAKEN TO FLOOR
--- NOTE | 2019-10-15 11:25 | NUR ---
PATIENT SLEEPY BUT ORIENTED X4, DENIES PAIN, V/S STABLE, 20G PIV RUE, SCD ON, DRESSING TO RIGHT HIP CDI, F/C DRAINING CLEAR YELLOW URINE, SENSATIONS T10, ON TELE AND CONTINOUS PULSE OX TAKEN TO 4014B WITH ALL BELONGINGS AND HOOKED UP TO MONITORS IN ROOM AND REPORT GIVEN TO UNIFORM FORCE CAPTAIN WHO HAS TAKEN OVER PATIENT CARE.
--- NOTE | 2019-10-15 12:25 | NUR ---
PAGER ID: [phone] MESSAGE: [phone] Muriel Cloud Patient is going into AIBB, NSR AND [facility] Bella [phone]
[2019-10-15] MEDS: ceFAZolin 1GM/D5W- ADD-VANTAGE 50 ML IV SCH (15:41)
--- NOTE | 2019-10-15 16:08 | NUR ---
gave report to eulalia robert
[2019-10-15] MEDS: HYDROcodone/acetaminophen 10/325mg tab PO PRN (17:07)
[2019-10-15] MEDS ORDERED: ATR0.5NEB INH (18:08)
[2019-10-15] MEDS: docusate sod 100mg capsule PO SCH (19:31)
[2019-10-16] MEDS: ceFAZolin 1GM/D5W- ADD-VANTAGE 50 ML IV SCH ×3 (00:13→15:52)
[2019-10-16] MEDS: HYDROcodone/acetaminophen 10/325mg tab PO PRN ×2 (00:15→05:02)
[2019-10-16 02:04] VITALS: BP 119/64
--- NOTE | 2019-10-16 06:31 | NUR ---
Problems reprioritized. Patient report given, questions answered & plan of care reviewed with SERENITY GARDNER.
[2019-10-16 06:33] LABS: ALBUMIN 2.6 G/DL (3.4-5.0); ANION GAP 3 (8-16); BLOOD UREA NITROGEN 19 MG/DL (7-18); BUN/CREATININE RATIO 21.8 (6.6-38.0); CALCIUM 8.2 MG/DL (8.5-10.1); CHLORIDE 105 MMOL/L (99-107); CREATININE 0.87 MG/DL (0.40-0.90); GLUCOSE 79 MG/DL (70-104); POTASSIUM 4.7 MMOL/L (3.5-5.1); SODIUM 135 MMOL/L (135-145); TOTAL CARBON DIOXIDE 27.2 MMOL/L (24-32); eGFR 63 ML/MIN
[2019-10-16 06:35] LABS: BASOPHILS % (AUTO) 0.4 % (0-1); EOSINOPHILS % (AUTO) 0.2 % (0-6); HEMATOCRIT 36.1 % (35.0-45.0); HEMOGLOBIN 11.8 g/dl (12.0-16.0); LYMPHOCYTES # (AUTO) 0.8 X10'3 (1.1-4.8); LYMPHOCYTES % (AUTO) 12.6 % (21-51); MEAN CORPUSCULAR HGB CONC 32.8 g/dL (33.0-36.5); MEAN CORPUSCULAR VOLUME 94.3 FL (78-98); MONOCYTES # (AUTO) 0.6 X10'3 (0-0.9); MONOCYTES % (AUTO) 8.9 % (2-12); NEUTROPHILS # (AUTO) 4.8 X10'3 (1.8-7.7); NEUTROPHILS % (AUTO) 77.9 % (42-75); PLATELET COUNT 143 X10'3 (140-440); RED BLOOD COUNT 3.82 X10'6 (4.20-5.60); RED CELL DISTRIBUTION WIDTH 14.1 % (11.5-14.5); WHITE BLOOD COUNT 6.2 X10'3 (4.5-11.0)
[2019-10-16 07:16] VITALS: BP_SYST 121; BP_SYST 136; BP_DIAS 104; BP_DIAS 68
[2019-10-16] MEDS ORDERED: ibuprofen 200mg tablet PO PRN (07:20)
[2019-10-16] MEDS ORDERED: albuterol 2.5 MG/3 ML nebule NEB PRN (07:30)
[2019-10-16] MEDS: diltiazem CD 180mg cap (once-daily) PO SCH (08:06)
[2019-10-16] MEDS: docusate sod 100mg capsule PO SCH ×2 (08:07→19:06)
[2019-10-16] MEDS: rivaroxaban 20mg tablet PO SCH (08:07)
--- NOTE | 2019-10-16 08:15 | NUR ---
Page Sent PAGER ID: [phone] MESSAGE: PT IN ROOM 4014B YOMAIRA- JUST WENT INTO AFIB RATE IN 140S, JUST GAVE MORNING DOSE OF CARDIZEM 180 RIGHT NOW. BP 121/68. THANK YOU KENDRA BENTON [phone]
[2019-10-16 12:04] VITALS: BP 101/59
[2019-10-16 18:00] VITALS: BP 96/54
--- NOTE | 2019-10-16 18:23 | NUR ---
Patient in room ORTHO 4014. I have received report from eulalia Schneider and had the opportunity to ask questions and assume patient care.
[2019-10-16 22:02] VITALS: BP 107/61
[2019-10-16] MEDS: HYDROcodone/acetaminophen 5mg/325mg tablet PO PRN (22:53)
[2019-10-17 01:57] VITALS: BP 115/51
[2019-10-17] MEDS: HYDROcodone/acetaminophen 5mg/325mg tablet PO PRN (05:48)
[2019-10-17 06:03] LABS: MONOCYTES # (AUTO) 0.8 X10'3 (0-0.9); NEUTROPHILS # (AUTO) 3.1 X10'3 (1.8-7.7)
[2019-10-17 06:05] LABS: BASOPHILS % (AUTO) 0.7 % (0-1); EOSINOPHILS % (AUTO) 0.7 % (0-6); HEMATOCRIT 33.2 % (35.0-45.0); HEMOGLOBIN 11.1 g/dl (12.0-16.0); LYMPHOCYTES # (AUTO) 0.7 X10'3 (1.1-4.8); LYMPHOCYTES % (AUTO) 15.6 % (21-51); MEAN CORPUSCULAR HEMOGLOBIN 31.8 PG (27.0-31.0); MEAN CORPUSCULAR HGB CONC 33.6 g/dL (33.0-36.5); MEAN CORPUSCULAR VOLUME 94.7 FL (78-98); MEAN PLATELET VOLUME 8.8 FL (7.4-10.4); MONOCYTES % (AUTO) 17.7 % (2-12); NEUTROPHILS % (AUTO) 65.3 % (42-75); PLATELET COUNT 117 X10'3 (140-440); RED CELL DISTRIBUTION WIDTH 13.7 % (11.5-14.5); WHITE BLOOD COUNT 4.7 X10'3 (4.5-11.0)
[2019-10-17 06:06] LABS: ALBUMIN 2.3 G/DL (3.4-5.0); ANION GAP 2 (8-16); BLOOD UREA NITROGEN 18 MG/DL (7-18); BUN/CREATININE RATIO 25.4 (6.6-38.0); CALCIUM 8.2 MG/DL (8.5-10.1); CHLORIDE 105 MMOL/L (99-107); CREATININE 0.71 MG/DL (0.40-0.90); GLUCOSE 95 MG/DL (70-104); POTASSIUM 5.1 MMOL/L (3.5-5.1); SODIUM 137 MMOL/L (135-145); TOTAL CARBON DIOXIDE 29.7 MMOL/L (24-32); eGFR 80 ML/MIN
--- NOTE | 2019-10-17 06:16 | NUR ---
Problems reprioritized. Patient report given, questions answered & plan of care reviewed with SERENITY GARDNER.
[2019-10-17 06:40] VITALS: BP 103/43
[2019-10-17 07:19] LABS: PLATELET ESTIMATE DECREASED; TOTAL CELLS COUNTED 100
[2019-10-17] MEDS: diltiazem CD 180mg cap (once-daily) PO SCH (07:41)
[2019-10-17] MEDS: docusate sod 100mg capsule PO SCH (07:41)
[2019-10-17] MEDS: rivaroxaban 20mg tablet PO SCH (07:41)
[2019-10-17 09:49] VITALS: BP 88/48
[2019-10-17] MEDS: cephalexin 250mg capsule PO SCH ×2 (10:03→13:17)
== END 2019-10-17 16:30 | DRG 480 ==
LOC: ER 05:09 → ED HOLD 08:28 → ORTHO 4S 11:25
PROVIDERS: ADMIT Internal Medicine; ATTEND Internal Medicine
PROC: 0QS606Z Reposition Right Upper Femur with Intramedullary Internal Fixation Device, Open Approach (ICD-10-PCS; principal; 2019-10-15 09:20)
DX: S72.144A Nondisplaced intertrochanteric fracture of right femur, initial encounter for closed fracture (principal); G92 Toxic encephalopathy; J96.11 Chronic respiratory failure with hypoxia; J44.1 Chronic obstructive pulmonary disease with (acute) exacerbation; D62 Acute posthemorrhagic anemia; T41.45XA Adverse effect of unspecified anesthetic, initial encounter; Y92.234 Operating room of hospital as the place of occurrence of the external cause; E78.00 Pure hypercholesterolemia, unspecified; I25.10 Atherosclerotic heart disease of native coronary artery without angina pectoris; I48.0 Paroxysmal atrial fibrillation; F10.20 Alcohol dependence, uncomplicated; M06.9 Rheumatoid arthritis, unspecified; F15.90 Other stimulant use, unspecified, uncomplicated; Z60.2 Problems related to living alone; K21.9 Gastro-esophageal reflux disease without esophagitis; W01.0XXA Fall on same level from slipping, tripping and stumbling without subsequent striking against object, initial encounter; Y99.8 Other external cause status; Z81.3 Family history of other psychoactive substance abuse and dependence; Z82.49 Family history of ischemic heart disease and other diseases of the circulatory system; Z90.710 Acquired absence of both cervix and uterus; Y93.89 Activity, other specified; Y92.098 Other place in other non-institutional residence as the place of occurrence of the external cause; Z80.9 Family history of malignant neoplasm, unspecified; Z79.01 Long term (current) use of anticoagulants; Z79.899 Other long term (current) drug therapy; Z87.01 Personal history of pneumonia (recurrent)
CPT/HCPCS: 36415; 70450; 71045; 73502; 76000; 80048; 80053; 80305; 81001; 83880; 85025; 85610; 85730; 86885; 86900; 86901; 87077; 87081; 87088; 87186; 93005; 94640; 96374; 96375; 96376; 97110; 97116; 97162; 97530; 99285; A4215; A4618; A6222; A6258; A6449; A6455; A7000; C1713; G0378; J0690; J2250; J2270; J2405; J2710; J3010; J3490; J7120

== ENCOUNTER 2019-11-12 18:05 | Emergency (ER) | payer MEDICARE, MEDICAID ==
[~2019-11-12] VITALS: Ht 160 cm; Wt 50.9 kg
[~2019-11-12 18:05] MED LIST changes: -ALB0.5UD IH; +ATR0.5NEB INH; -AZIT-63 PO; -FAMO-128 PO; -LIDO700A32 TOP; -PRED20TA PO; -TAM75C PO
[2019-11-12 18:41] LABS: BASOPHILS # (AUTO) 0.1 X10'3 (0-0.2); BASOPHILS % (AUTO) 1.1 % (0-1); EOSINOPHILS # (AUTO) 0.1 X10'3 (0-0.9); EOSINOPHILS % (AUTO) 2.2 % (0-6); HEMATOCRIT 39.1 % (35.0-45.0); HEMOGLOBIN 12.7 g/dl (12.0-16.0); LYMPHOCYTES # (AUTO) 1.9 X10'3 (1.1-4.8); LYMPHOCYTES % (AUTO) 40.2 % (21-51); MEAN CORPUSCULAR HEMOGLOBIN 31.3 PG (27.0-31.0); MEAN CORPUSCULAR HGB CONC 32.4 g/dL (33.0-36.5); MEAN CORPUSCULAR VOLUME 96.8 FL (78-98); MEAN PLATELET VOLUME 8.7 FL (7.4-10.4); MONOCYTES # (AUTO) 0.4 X10'3 (0-0.9); NEUTROPHILS # (AUTO) 2.3 X10'3 (1.8-7.7); NEUTROPHILS % (AUTO) 47.5 % (42-75); PLATELET COUNT 176 X10'3 (140-440); RED BLOOD COUNT 4.04 X10'6 (4.20-5.60); RED CELL DISTRIBUTION WIDTH 15.9 % (11.5-14.5); WHITE BLOOD COUNT 4.8 X10'3 (4.5-11.0)
[2019-11-12 19:01] LABS: ALANINE AMINOTRANSFERASE 80 U/L (12-78); ALBUMIN 2.9 G/DL (3.4-5.0); ALBUMIN/GLOBULIN RATIO 0.9 (1.1-1.5); ALKALINE PHOSPHATASE 244 IU/L (46-116); ANION GAP 3 (8-16); ASPARTATE AMINO TRANSFERASE 67 U/L (10-37); BILIRUBIN,TOTAL 0.2 MG/DL (0.1-1.0); BLOOD UREA NITROGEN 21 MG/DL (7-18); BUN/CREATININE RATIO 23.9 (6.6-38.0); CALCIUM 8.1 MG/DL (8.5-10.1); CHLORIDE 110 MMOL/L (99-107); CREATININE 0.88 MG/DL (0.40-0.90); GLUCOSE 143 MG/DL (70-104); POTASSIUM 4.3 MMOL/L (3.5-5.1); SODIUM 144 MMOL/L (135-145); TOTAL CARBON DIOXIDE 30.9 MMOL/L (24-32); TOTAL PROTEIN 6.1 G/DL (6.4-8.2); eGFR 62 ML/MIN
[2019-11-12 19:26] VITALS: BP 101/63
== END 2019-11-12 19:39 | disposition home or self-care (01) ==
LOC: ER 18:06
DX: F12.90 Cannabis use, unspecified, uncomplicated (principal); R42 Dizziness and giddiness; E78.00 Pure hypercholesterolemia, unspecified; J44.9 Chronic obstructive pulmonary disease, unspecified; K21.9 Gastro-esophageal reflux disease without esophagitis; M19.90 Unspecified osteoarthritis, unspecified site; F15.90 Other stimulant use, unspecified, uncomplicated; M06.9 Rheumatoid arthritis, unspecified; Z90.710 Acquired absence of both cervix and uterus; Z98.890 Other specified postprocedural states; Z72.89 Other problems related to lifestyle; Z59.0 Homelessness
CPT/HCPCS: 36415; 71045; 80053; 84484; 85025; 93005; 99285

== ENCOUNTER 2019-11-27 13:20 | Emergency (ER) | payer MEDICARE, MEDICAID ==
[~2019-11-27] VITALS: Ht 162.6 cm; Wt 50.0 kg
[2019-11-27 13:45] VITALS: BP 96/69
[2019-11-27] MEDS ORDERED: DIME237L2 TOP (16:18)
== END 2019-11-27 16:56 | disposition home or self-care (01) ==
LOC: ER 13:21
DX: R21 Rash and other nonspecific skin eruption (principal); R53.1 Weakness; E78.00 Pure hypercholesterolemia, unspecified; J44.9 Chronic obstructive pulmonary disease, unspecified; K21.9 Gastro-esophageal reflux disease without esophagitis; M19.90 Unspecified osteoarthritis, unspecified site; F12.90 Cannabis use, unspecified, uncomplicated; F15.90 Other stimulant use, unspecified, uncomplicated; Z87.01 Personal history of pneumonia (recurrent); Z86.2 Personal history of diseases of the blood and blood-forming organs and certain disorders involving the immune mechanism; Z90.710 Acquired absence of both cervix and uterus; Z98.890 Other specified postprocedural states; Z72.89 Other problems related to lifestyle; Z60.2 Problems related to living alone; Z59.0 Homelessness; Z79.899 Other long term (current) drug therapy
CPT/HCPCS: 99284

== ENCOUNTER 2020-03-07 09:42 | Emergency (ER) | payer MEDICARE, MEDICAID ==
[~2020-03-07] VITALS: Ht 162.6 cm; Wt 48.6 kg
[~2020-03-07 09:42] MED LIST changes: +DIME237L2 TOP
[2020-03-07] MEDS ORDERED: normal saline 1000ML IV soln IVB ONE (10:15)
[2020-03-07 10:42] LABS: BASOPHILS % (AUTO) 1.1 % (0-1); EOSINOPHILS # (AUTO) 0.1 X10'3 (0-0.9); EOSINOPHILS % (AUTO) 1.6 % (0-6); HEMATOCRIT 42.6 % (35.0-45.0); HEMOGLOBIN 14.1 g/dl (12.0-16.0); LYMPHOCYTES # (AUTO) 0.7 X10'3 (1.1-4.8); LYMPHOCYTES % (AUTO) 22.3 % (21-51); MEAN CORPUSCULAR HEMOGLOBIN 29.9 PG (27.0-31.0); MEAN CORPUSCULAR VOLUME 90.7 FL (78-98); MEAN PLATELET VOLUME 8.6 FL (7.4-10.4); MONOCYTES # (AUTO) 0.4 X10'3 (0-0.9); MONOCYTES % (AUTO) 11.8 % (2-12); NEUTROPHILS # (AUTO) 2.1 X10'3 (1.8-7.7); NEUTROPHILS % (AUTO) 63.2 % (42-75); PLATELET COUNT 168 X10'3 (140-440); RED BLOOD COUNT 4.69 X10'6 (4.20-5.60); RED CELL DISTRIBUTION WIDTH 15.9 % (11.5-14.5); WHITE BLOOD COUNT 3.3 X10'3 (4.5-11.0)
[2020-03-07 11:06] LABS: ALANINE AMINOTRANSFERASE 63 U/L (12-78); ALBUMIN 3.7 G/DL (3.4-5.0); ALKALINE PHOSPHATASE 121 IU/L (46-116); ANION GAP 8 (8-16); ASPARTATE AMINO TRANSFERASE 63 U/L (10-37); BILIRUBIN,TOTAL 0.5 MG/DL (0.1-1.0); BLOOD UREA NITROGEN 22 MG/DL (7-18); BUN/CREATININE RATIO 26.8 (6.6-38.0); CALCIUM 8.6 MG/DL (8.5-10.1); CHLORIDE 105 MMOL/L (99-107); CREATININE 0.82 MG/DL (0.40-0.90); GLUCOSE 91 MG/DL (70-104); POTASSIUM 4.6 MMOL/L (3.5-5.1); SODIUM 140 MMOL/L (135-145); TOTAL CARBON DIOXIDE 27.2 MMOL/L (24-32); TOTAL PROTEIN 7.3 G/DL (6.4-8.2); eGFR 68 ML/MIN
[2020-03-07 12:08] LABS: CLARITY,URINE CLEAR (Clear); COLOR,URINE YELLOW (Yellow); GLUCOSE, URINE NEGATIVE (Neg); KETONES,URINE NEGATIVE (Neg); LEUKOCYTE ESTERASE ,URINE NEGATIVE (Neg); NITRITES, URINE POSITIVE (Neg); OCCULT BLOOD,URINE TRACE-INTACT (Neg); PROTEIN,URINE NEGATIVE (Neg); UROBILINOGEN,URINE 0.2 E.U/dL (0.2-1.0)
[2020-03-07 12:09] LABS: UA COLLECTION TYPE CLN CATCH MIDSTREAM
[2020-03-07 12:16] LABS: BACTERIA,URINE 4+ /HPF (Neg); MUCUS STRANDS NONE SEEN /LPF (Neg); RBC,URINE NONE SEEN /HPF (0-2); SQUAMOUS EPITHELIAL CELL,UR FEW /LPF (FEW); WBC,URINE 0-4 /HPF (0-4)
[2020-03-07] MEDS ORDERED: CEPH500C5 PO (12:39)
[2020-03-07] MEDS ORDERED: TRIA15CR62 TOP (12:39)
[2020-03-07] MEDS ORDERED: diltiazem CD 180mg cap (once-daily) PO ONE (13:00)
[2020-03-07 13:13] VITALS: BP 136/93
== END 2020-03-07 13:30 | disposition home or self-care (01) ==
LOC: ER 09:43
DX: N39.0 Urinary tract infection, site not specified (principal); I73.9 Peripheral vascular disease, unspecified; I48.91 Unspecified atrial fibrillation; E78.00 Pure hypercholesterolemia, unspecified; J44.9 Chronic obstructive pulmonary disease, unspecified; K21.9 Gastro-esophageal reflux disease without esophagitis; M06.9 Rheumatoid arthritis, unspecified; F17.200 Nicotine dependence, unspecified, uncomplicated; F12.90 Cannabis use, unspecified, uncomplicated; Z72.89 Other problems related to lifestyle; Z90.710 Acquired absence of both cervix and uterus; Z98.890 Other specified postprocedural states; Z60.2 Problems related to living alone; Z59.0 Homelessness; Z79.01 Long term (current) use of anticoagulants; Z79.899 Other long term (current) drug therapy; Z86.19 Personal history of other infectious and parasitic diseases
CPT/HCPCS: 36415; 80053; 81001; 85025; 85610; 87088; 96360; 99284; J7030; 87077; 87186; 93005

== ENCOUNTER 2020-04-15 18:14 | Emergency (ER) | payer MEDICARE, MEDICAID ==
[~2020-04-15] VITALS: Ht 165.1 cm; Wt 55.0 kg
[~2020-04-15 18:14] MED LIST changes: +CEPH500C5 PO
[2020-04-15 18:23] VITALS: BP 125/98
[2020-04-15] MEDS ORDERED: TETanus/Pertussis (Acell)/Diphther VAC/PF (Tdap-Adult) 0.5ml syringe IMVAC ONE (19:05)
== END 2020-04-15 20:26 | disposition home or self-care (01) ==
LOC: ER 18:15
DX: S51.811A Laceration without foreign body of right forearm, initial encounter (principal); I48.91 Unspecified atrial fibrillation; E78.00 Pure hypercholesterolemia, unspecified; J44.9 Chronic obstructive pulmonary disease, unspecified; K21.9 Gastro-esophageal reflux disease without esophagitis; M19.90 Unspecified osteoarthritis, unspecified site; M06.9 Rheumatoid arthritis, unspecified; F12.90 Cannabis use, unspecified, uncomplicated; Z90.710 Acquired absence of both cervix and uterus; Z79.899 Other long term (current) drug therapy; Z98.890 Other specified postprocedural states; Z72.89 Other problems related to lifestyle; Z60.2 Problems related to living alone; Z59.0 Homelessness; Z79.01 Long term (current) use of anticoagulants; W22.8XXA Striking against or struck by other objects, initial encounter; Y93.89 Activity, other specified; Y92.89 Other specified places as the place of occurrence of the external cause; Y99.8 Other external cause status
CPT/HCPCS: 12001; 12002; 12015; 90471; 90715; 99284

== ENCOUNTER 2020-05-24 16:29 | Emergency (ER) | payer MEDICARE, MEDICAID ==
[~2020-05-24] VITALS: Ht 160 cm; Wt 49.1 kg
[2020-05-24 17:27] LABS: BASOPHILS # (AUTO) 0.1 X10'3 (0-0.2); EOSINOPHILS # (AUTO) 0.1 X10'3 (0-0.9); HEMATOCRIT 42.6 % (35.0-45.0); HEMOGLOBIN 13.8 g/dl (12.0-16.0); MEAN CORPUSCULAR HEMOGLOBIN 29.8 PG (27.0-31.0); MEAN CORPUSCULAR HGB CONC 32.5 g/dL (33.0-36.5); MONOCYTES # (AUTO) 0.4 X10'3 (0-0.9); NEUTROPHILS # (AUTO) 2.1 X10'3 (1.8-7.7); NEUTROPHILS % (AUTO) 57.1 % (42-75); RED BLOOD COUNT 4.65 X10'6 (4.20-5.60)
[2020-05-24 17:29] LABS: BASOPHILS % (AUTO) 1.9 % (0-1); EOSINOPHILS % (AUTO) 2.2 % (0-6); LYMPHOCYTES % (AUTO) 26.9 % (21-51); MEAN CORPUSCULAR VOLUME 91.7 FL (78-98); MEAN PLATELET VOLUME 9.3 FL (7.4-10.4); MONOCYTES % (AUTO) 11.9 % (2-12); PLATELET COUNT 167 X10'3 (140-440); RED CELL DISTRIBUTION WIDTH 16.2 % (11.5-14.5); WHITE BLOOD COUNT 3.7 X10'3 (4.5-11.0)
[2020-05-24 17:46] LABS: ALANINE AMINOTRANSFERASE 75 U/L (12-78); ALBUMIN 3.3 G/DL (3.4-5.0); ALKALINE PHOSPHATASE 131 IU/L (46-116); ANION GAP 7 (8-16); ASPARTATE AMINO TRANSFERASE 74 U/L (10-37); BILIRUBIN,TOTAL 0.9 MG/DL (0.1-1.0); BLOOD UREA NITROGEN 27 MG/DL (7-18); BUN/CREATININE RATIO 25.7 (6.6-38.0); CALCIUM 8.4 MG/DL (8.5-10.1); CHLORIDE 108 MMOL/L (99-107); CREATININE 1.05 MG/DL (0.40-0.90); GLUCOSE 97 MG/DL (70-104); POTASSIUM 4.3 MMOL/L (3.5-5.1); SODIUM 141 MMOL/L (135-145); TOTAL CARBON DIOXIDE 25.7 MMOL/L (24-32); TOTAL PROTEIN 6.6 G/DL (6.4-8.2); eGFR 51 ML/MIN
[2020-05-24] MEDS ORDERED: diltiazem 5mg/ml 5ml inj. IV ONE ×2 (18:05→19:30)
[2020-05-24] MEDS ORDERED: iohexol 350MG/ML 100ml bottle IV ONE (18:25)
[2020-05-24 18:50] LABS: C-REACTIVE PROTEIN 0.15 MG/DL (0.0-0.5); ETHANOL < 0.010 GM/DL (0.0-0.010)
[2020-05-24 18:57] LABS: FERRITIN 34 NG/ML (8-252); LACTATE DEHYDROGENASE 472 U/L (81-234)
[2020-05-24] MEDS ORDERED: RIVA20TA PO (19:32)
[2020-05-24] MEDS ORDERED: ATR0.5NEB NEB (19:32)
[2020-05-24] MEDS ORDERED: ALBU6.7H9 INH (19:32)
[2020-05-24] MEDS ORDERED: DILT-94 PO (19:32)
[2020-05-24 20:18] LABS: URINE AMPHETAMINE SCREEN POSITIVE (Neg); URINE BARBITUATE SCREEN NEGATIVE (Neg); URINE BENZODIAZEPINES SCREEN NEGATIVE (Neg); URINE CANNABINOID SCREEN POSITIVE (Neg); URINE COCAINE SCREEN NEGATIVE (Neg); URINE METHADONE SCREEN NEGATIVE (Neg); URINE OPIATE SCREEN NEGATIVE (Neg); URINE PHENCYCLIDINE SCREEN NEGATIVE (Neg)
--- NOTE | 2020-05-24 20:54 | NUR ---
[facility] CALLED AT 2053... ON WAY NOW FOR PT
[2020-05-24 22:46] VITALS: BP 122/79
== END 2020-05-24 22:50 | disposition home or self-care (01) ==
LOC: ER 16:31
DX: R06.02 Shortness of breath (principal); Z20.828 Contact with and (suspected) exposure to other viral communicable diseases; I48.91 Unspecified atrial fibrillation; E78.00 Pure hypercholesterolemia, unspecified; J44.9 Chronic obstructive pulmonary disease, unspecified; K21.9 Gastro-esophageal reflux disease without esophagitis; M19.90 Unspecified osteoarthritis, unspecified site; F12.90 Cannabis use, unspecified, uncomplicated; F15.90 Other stimulant use, unspecified, uncomplicated; Z87.01 Personal history of pneumonia (recurrent); Z86.19 Personal history of other infectious and parasitic diseases; Z86.2 Personal history of diseases of the blood and blood-forming organs and certain disorders involving the immune mechanism; Z87.440 Personal history of urinary (tract) infections; Z90.710 Acquired absence of both cervix and uterus; Z98.890 Other specified postprocedural states; Z72.89 Other problems related to lifestyle; Z60.2 Problems related to living alone; Z56.0 Unemployment, unspecified; Z79.2 Long term (current) use of antibiotics; Z79.899 Other long term (current) drug therapy
CPT/HCPCS: 36415; 71045; 71275; 80053; 80305; 80320; 82728; 83615; 83880; 84145; 84443; 84484; 85025; 85379; 85384; 86140; 87635; 93005; 96374; 99285; C9803; Q9967; J3490

== ENCOUNTER 2020-05-26 14:58 | Inpatient (IN) | payer MEDICARE, MEDICAID ==
[~2020-05-26] VITALS: Ht 160 cm; Wt 56.4 kg
[~2020-05-26 14:58] MED LIST changes: +ATR0.5NEB NEB; +DILT-94 PO
[2020-05-26] MEDS ORDERED: diltiazem 5mg/ml 5ml inj. IV ONE (15:30)
[2020-05-26] MEDS ORDERED: potassium Cl 20 mEq SR tablet PO PRN ×2 (17:30)
[2020-05-26] MEDS ORDERED: magnesium 2GM in 50ml NS 50 ML IV PRN (17:30)
[2020-05-26] MEDS ORDERED: ondansetron/PF 4mg/2ml inj IV PRN (17:30)
[2020-05-26] MEDS ORDERED: magnesium Cl slow-release 64mg tablet PO PRN (17:30)
[2020-05-26] MEDS ORDERED: magnesium 4gm in 100ml NS 100 ML IV PRN (17:30)
[2020-05-26] MEDS ORDERED: acetaminophen 325mg tablet PO PRN (17:30)
[2020-05-26] MEDS ORDERED: potassium CL 10mEq/100ml bag 100 ML IV PRN ×2 (17:30)
[2020-05-26] MEDS ORDERED: ALBU6.7H9 IH (17:53)
[2020-05-26] MEDS ORDERED: ipratropium/albuterol 3ml nebule NEB PRN ×2 (18:50)
[2020-05-26] MEDS: K and/or MAG REPLACEMENT MC SCH (20:00)
[2020-05-26 20:22] LABS: C-REACTIVE PROTEIN < 0.05 MG/DL (0.0-0.5); LACTATE DEHYDROGENASE 267 U/L (81-234)
[2020-05-26] MEDS: rivaroxaban 20mg tablet PO SCH (20:33)
[2020-05-26] MEDS: furosemide 40mg/4ml inj IV SCH (20:33)
[2020-05-26] MEDS: DEXAMETHASONE 6 MG TABLET PO SCH (20:33)
--- NOTE | 2020-05-26 21:00 | NUR ---
Patient in room PCU 3021. I have received report from Master BENTON from ER by telephone and had the opportunity to ask questions and assume patient care. Was told that the Troponin would be drawn before arrival to unit with all belongings.
[2020-05-26 21:30] VITALS: BP 131/73
[2020-05-27] VITALS (7 sets, daily range): BP systolic 119–139; BP diastolic 71–105
[2020-05-27 04:07] LABS: BASOPHILS % (AUTO) 0.5 % (0-1); EOSINOPHILS % (AUTO) 0.4 % (0-6); HEMATOCRIT 45.4 % (35.0-45.0); HEMOGLOBIN 14.9 g/dl (12.0-16.0); LYMPHOCYTES # (AUTO) 0.4 X10'3 (1.1-4.8); LYMPHOCYTES % (AUTO) 14.2 % (21-51); MEAN CORPUSCULAR HEMOGLOBIN 29.7 PG (27.0-31.0); MEAN CORPUSCULAR HGB CONC 32.7 g/dL (33.0-36.5); MEAN CORPUSCULAR VOLUME 90.7 FL (78-98); MEAN PLATELET VOLUME 9.8 FL (7.4-10.4); MONOCYTES # (AUTO) 0.1 X10'3 (0-0.9); MONOCYTES % (AUTO) 2.5 % (2-12); NEUTROPHILS # (AUTO) 2.4 X10'3 (1.8-7.7); NEUTROPHILS % (AUTO) 82.4 % (42-75); PLATELET COUNT 177 X10'3 (140-440); RED CELL DISTRIBUTION WIDTH 15.8 % (11.5-14.5); WHITE BLOOD COUNT 2.9 X10'3 (4.5-11.0)
[2020-05-27 04:11] LABS: ALBUMIN 3.1 G/DL (3.4-5.0); ANION GAP 9 (8-16); BLOOD UREA NITROGEN 24 MG/DL (7-18); BUN/CREATININE RATIO 30.4 (6.6-38.0); CALCIUM 8.5 MG/DL (8.5-10.1); CHLORIDE 106 MMOL/L (99-107); CHOL/HDL RATIO 2.1 (0.00-4.99); CHOLESTEROL 118 MG/DL (0-200); CREATININE 0.79 MG/DL (0.40-0.90); GLUCOSE 141 MG/DL (70-104); HDL CHOLESTEROL 55 MG/DL (35-60); LDL CHOLESTEROL 55 MG/DL (50-100); MAGNESIUM 1.9 MG/DL (1.5-2.4); SODIUM 141 MMOL/L (135-145); TOTAL CARBON DIOXIDE 25.8 MMOL/L (24-32); TRIGLYCERIDES 29 MG/DL (20-135); eGFR 71 ML/MIN
[2020-05-27 05:03] LABS: PLATELET ESTIMATE NORMAL; TOTAL CELLS COUNTED 100
--- NOTE | 2020-05-27 06:23 | NUR ---
Patient in room PCU 3021. I have received report from Neema BENTON and had the opportunity to ask questions and assume patient care.
[2020-05-27] MEDS: furosemide 40mg/4ml inj IV SCH ×2 (08:00→20:28)
[2020-05-27] MEDS: K and/or MAG REPLACEMENT MC SCH ×2 (08:00→20:00)
[2020-05-27] MEDS: DEXAMETHASONE 6 MG TABLET PO SCH (08:00)
[2020-05-27] MEDS ORDERED: pneumococcal 23-VAL P-sac vacc 25 mcg/0.5ml vial IMVAC ONE (10:00)
[2020-05-27] MEDS ORDERED: FLU VACC QS2020-21(6MOS UP)/PF 60 MCG/0.5 ML SYRINGE IMVAC ONE (10:00)
--- NOTE | 2020-05-27 10:43 | NUR ---
dexamethasone and lasix not scanned this am no computer was in the covid room.
--- NOTE | 2020-05-27 14:31 | NUR ---
Malnutrition consult: Pt presented to ER with c/o BEULAH and was admitted for COVID 19 pneumonia. Pt reports appetite and wt loss. PO intake is 50% on heart healthy diet, only one recorded meal since admit. Current wt is 120 lbs, in April 2020 scaled wt was 121 lbs, and in November 2019 scaled wt was 110 lbs. Pt does not appear to have lost wt. Per physical assessment, pt has BLE 2+ edema and mild muscle weakness. Pt lacks a minimum of two criteria for malnutrition. Will continue to monitor. To f/u 05/31 for initial assessment. Addendum: 05/27/20 at [address] Amended: Acacia added. Addendum: 05/27/20 at [address] STAN Garber
--- NOTE | 2020-05-27 15:27 | NUR ---
PAGER ID: [phone] MESSAGE: Patient Ai [id number], HR is 140s-150s Afib and sustaining, she had a one Cardizem push last night, can we get one for her? Please advise Lu PCU 1201
--- NOTE | 2020-05-27 15:47 | NUR ---
Page Sent promotional table spacer PAGER ID: [phone] MESSAGE: [id number] Ai. Patient HR been in 130s all day and has consistently been getting up to 150s. Last 30 minutes she has been maintaining in the 140s. She has been in Afib since admit. Kat [phone]
--- NOTE | 2020-05-27 16:32 | NUR ---
Page sent to Dr. Burnette PAGER ID: [phone] MESSAGE: [id number] Muriel Cloud: Patient's HR is 130's-140's can we please get a one time medication to bring down HR? than you, Agustina [phone]
[2020-05-27] MEDS ORDERED: diltiazem 5mg/ml 5ml inj. IV PRN ×2 (17:00→17:05)
[2020-05-27] MEDS: diltiazem 30mg tablet PO SCH ×2 (17:16→20:00)
[2020-05-27] MEDS: rivaroxaban 20mg tablet PO SCH (17:17)
[2020-05-27] MEDS ORDERED: diltiazem 5mg/ml 5ml inj. IV ONE (18:00)
--- NOTE | 2020-05-27 18:50 | NUR ---
Problems reprioritized. Patient report given, questions answered & plan of care reviewed with PAt RN.
[2020-05-28 01:45] VITALS: BP 131/74
[2020-05-28] MEDS: diltiazem 30mg tablet PO SCH ×4 (01:47→20:04)
[2020-05-28 06:02] LABS: BASOPHILS % (AUTO) 0.3 % (0-1); EOSINOPHILS % (AUTO) 0.1 % (0-6); HEMATOCRIT 48.2 % (35.0-45.0); HEMOGLOBIN 15.4 g/dl (12.0-16.0); LYMPHOCYTES # (AUTO) 1.1 X10'3 (1.1-4.8); LYMPHOCYTES % (AUTO) 9.5 % (21-51); MEAN CORPUSCULAR VOLUME 90.6 FL (78-98); MEAN PLATELET VOLUME 9.3 FL (7.4-10.4); MONOCYTES # (AUTO) 0.8 X10'3 (0-0.9); MONOCYTES % (AUTO) 6.4 % (2-12); NEUTROPHILS # (AUTO) 9.9 X10'3 (1.8-7.7); NEUTROPHILS % (AUTO) 83.7 % (42-75); PLATELET COUNT 158 X10'3 (140-440); RED BLOOD COUNT 5.32 X10'6 (4.20-5.60); RED CELL DISTRIBUTION WIDTH 16.1 % (11.5-14.5); WHITE BLOOD COUNT 11.8 X10'3 (4.5-11.0)
[2020-05-28 06:23] LABS: ANION GAP 11 (8-16); BLOOD UREA NITROGEN 34 MG/DL (7-18); BUN/CREATININE RATIO 34.7 (6.6-38.0); CHLORIDE 106 MMOL/L (99-107); CREATININE 0.98 MG/DL (0.40-0.90); GLUCOSE 108 MG/DL (70-104); MAGNESIUM 1.9 MG/DL (1.5-2.4); POTASSIUM 4.8 MMOL/L (3.5-5.1); SODIUM 141 MMOL/L (135-145); TOTAL CARBON DIOXIDE 24.2 MMOL/L (24-32); eGFR 55 ML/MIN
--- NOTE | 2020-05-28 06:27 | NUR ---
Patient in room PCU 3021. I have received report from serge RN and had the opportunity to ask questions and assume patient care.
[2020-05-28 07:05] VITALS: BP 132/84
[2020-05-28] MEDS: DEXAMETHASONE 6 MG TABLET PO SCH (07:06)
[2020-05-28] MEDS: furosemide 40mg/4ml inj IV SCH ×2 (07:06→20:04)
[2020-05-28] MEDS: K and/or MAG REPLACEMENT MC SCH ×2 (07:36→19:29)
[2020-05-28] MEDS ORDERED: FLU VACC QS2020-21(6MOS UP)/PF 60 MCG/0.5 ML SYRINGE IMVAC ONE (10:00)
[2020-05-28] MEDS ORDERED: pneumococcal 23-VAL P-sac vacc 25 mcg/0.5ml vial IMVAC ONE (10:00)
[2020-05-28 10:40] VITALS: BP 119/74
[2020-05-28] MEDS: guaiFENesin 200 MG/10 ML oral syrup UD cup PO PRN (14:06)
[2020-05-28] MEDS: rivaroxaban 20mg tablet PO SCH (16:42)
--- NOTE | 2020-05-28 18:19 | NUR ---
Problems reprioritized. Patient report given, questions answered & plan of care reviewed with Selina BENTON and Bella BENTON.
[2020-05-28 19:54] VITALS: BP 116/69
[2020-05-28] MEDS: Melatonin 3mg tablet PO SCH (21:34)
[2020-05-28 22:00] VITALS: BP 111/70
[2020-05-29 01:47] VITALS: BP 126/66
[2020-05-29] MEDS: diltiazem 30mg tablet PO SCH ×4 (02:00→19:34)
[2020-05-29 05:48] LABS: BASOPHILS % (AUTO) 0.3 % (0-1); EOSINOPHILS % (AUTO) 0.2 % (0-6); HEMATOCRIT 45.7 % (35.0-45.0); HEMOGLOBIN 15.3 g/dl (12.0-16.0); LYMPHOCYTES # (AUTO) 0.7 X10'3 (1.1-4.8); LYMPHOCYTES % (AUTO) 8.1 % (21-51); MEAN CORPUSCULAR HEMOGLOBIN 30.6 PG (27.0-31.0); MEAN CORPUSCULAR HGB CONC 33.4 g/dL (33.0-36.5); MEAN CORPUSCULAR VOLUME 91.5 FL (78-98); MEAN PLATELET VOLUME 9.2 FL (7.4-10.4); MONOCYTES # (AUTO) 0.4 X10'3 (0-0.9); MONOCYTES % (AUTO) 4.3 % (2-12); NEUTROPHILS % (AUTO) 87.1 % (42-75); PLATELET COUNT 189 X10'3 (140-440); RED CELL DISTRIBUTION WIDTH 15.5 % (11.5-14.5); WHITE BLOOD COUNT 9.2 X10'3 (4.5-11.0)
[2020-05-29 05:53] LABS: ALBUMIN 3.1 G/DL (3.4-5.0); ANION GAP 8 (8-16); BLOOD UREA NITROGEN 43 MG/DL (7-18); BUN/CREATININE RATIO 43.9 (6.6-38.0); CALCIUM 8.6 MG/DL (8.5-10.1); CHLORIDE 103 MMOL/L (99-107); CREATININE 0.98 MG/DL (0.40-0.90); GLUCOSE 117 MG/DL (70-104); POTASSIUM 4.1 MMOL/L (3.5-5.1); SODIUM 140 MMOL/L (135-145); eGFR 55 ML/MIN
[2020-05-29 06:00] VITALS: BP 135/68
--- NOTE | 2020-05-29 06:00 | NUR ---
Patient in room PCU 3021. I have received report from Jaylene BENTON and had the opportunity to ask questions and assume patient care.
--- NOTE | 2020-05-29 06:10 | NUR ---
Problems reprioritized. Patient report given, questions answered & plan of care reviewed with Danika BENTON. Patient stable at transfer of care
[2020-05-29] MEDS: furosemide 40mg/4ml inj IV SCH ×2 (07:59→19:34)
[2020-05-29] MEDS: K and/or MAG REPLACEMENT MC SCH ×2 (08:00→19:52)
[2020-05-29] MEDS: DEXAMETHASONE 6 MG TABLET PO SCH (08:00)
[2020-05-29] MEDS: guaiFENesin 200 MG/10 ML oral syrup UD cup PO PRN (08:00)
[2020-05-29 10:16] VITALS: BP 113/69
--- NOTE | 2020-05-29 10:42 | NUR ---
Spoke to pts IHSS worked Charisma Oconnor and updated her on the patients current status.
[2020-05-29 14:41] VITALS: BP 126/71
--- NOTE | 2020-05-29 15:05 | NUR ---
O2 Sat at rest on room air 87% If below 89%: Recovery O2 Sat at rest on 2 LPM: 92% via nasal cannula No further documentation is necessary.
--- NOTE | 2020-05-29 15:12 | NUR ---
Initial: Pt presented to ER with c/o SOB and was admitted for COVID 19 pneumonia. Pt PO intake average 75-100% on heart healthy diet, meeting increased protein needs for COVID 19/COPD. Last BM 05/28. No nutrition diagnosis at this time, will continue to follow. Recs: 1) Continue heart healthy diet 2) Bowel care per Rx 3) Scaled wt per Rx Addendum: 05/29/20 at [address] Amended: Links added. Addendum: 05/29/20 at [address] I have reviewed and agree with note by Rn Hospital. Rochelle Astudillo RD
[2020-05-29] MEDS: rivaroxaban 20mg tablet PO SCH (16:10)
--- NOTE | 2020-05-29 18:15 | NUR ---
Problems reprioritized. Patient report given, questions answered & plan of care reviewed with Melina BENTON.
[2020-05-29] MEDS: Melatonin 3mg tablet PO SCH (19:34)
[2020-05-29 19:38] VITALS: BP 115/75
--- NOTE | 2020-05-29 20:30 | NUR ---
Pt found out of bed. Pt stated that she was attempting to come out of the room to come find rn. redirected and heel turner informed.
--- NOTE | 2020-05-29 21:00 | NUR ---
Pt called nurse's station and stated that she needed an extra blanket or she would come out of the room and find one. Pt redirected and brought a blanket.
[2020-05-29 22:00] VITALS: BP 114/72
[2020-05-30] MEDS: diltiazem 30mg tablet PO SCH ×4 (02:00→20:38)
--- NOTE | 2020-05-30 02:30 | NUR ---
Pt refused 0200 cardizem by shaking head and stating "no". educated pt on importance of cardizem medication. will attempt again.
[2020-05-30 06:32] LABS: BASOPHILS % (AUTO) 0.1 % (0-1); EOSINOPHILS % (AUTO) 0 % (0-6); HEMATOCRIT 45.3 % (35.0-45.0); HEMOGLOBIN 14.9 g/dl (12.0-16.0); LYMPHOCYTES # (AUTO) 0.8 X10'3 (1.1-4.8); LYMPHOCYTES % (AUTO) 10.6 % (21-51); MEAN CORPUSCULAR HEMOGLOBIN 29.7 PG (27.0-31.0); MEAN CORPUSCULAR HGB CONC 32.8 g/dL (33.0-36.5); MEAN CORPUSCULAR VOLUME 90.4 FL (78-98); MEAN PLATELET VOLUME 9.6 FL (7.4-10.4); MONOCYTES # (AUTO) 0.4 X10'3 (0-0.9); MONOCYTES % (AUTO) 5.3 % (2-12); NEUTROPHILS # (AUTO) 6.6 X10'3 (1.8-7.7); PLATELET COUNT 189 X10'3 (140-440); RED BLOOD COUNT 5.01 X10'6 (4.20-5.60); RED CELL DISTRIBUTION WIDTH 15.3 % (11.5-14.5); WHITE BLOOD COUNT 7.8 X10'3 (4.5-11.0)
[2020-05-30 06:36] LABS: ALBUMIN 2.8 G/DL (3.4-5.0); ANION GAP 5 (8-16); BLOOD UREA NITROGEN 48 MG/DL (7-18); BUN/CREATININE RATIO 50.5 (6.6-38.0); CHLORIDE 103 MMOL/L (99-107); CREATININE 0.95 MG/DL (0.40-0.90); GLUCOSE 112 MG/DL (70-104); MAGNESIUM 2.1 MG/DL (1.5-2.4); POTASSIUM 4.2 MMOL/L (3.5-5.1); SODIUM 140 MMOL/L (135-145); eGFR 57 ML/MIN
[2020-05-30] MEDS: K and/or MAG REPLACEMENT MC SCH ×2 (07:03→20:00)
[2020-05-30 07:40] VITALS: BP 122/81
[2020-05-30] MEDS: furosemide 40mg/4ml inj IV SCH ×2 (07:46→20:38)
[2020-05-30] MEDS: DEXAMETHASONE 6 MG TABLET PO SCH (07:46)
[2020-05-30] MEDS ORDERED: pneumococcal 23-VAL P-sac vacc 25 mcg/0.5ml vial IMVAC ONE (08:00)
[2020-05-30] MEDS ORDERED: FLU VACC QS2020-21(6MOS UP)/PF 60 MCG/0.5 ML SYRINGE IMVAC ONE (08:00)
[2020-05-30 11:00] VITALS: BP 127/67
[2020-05-30 15:00] VITALS: BP 132/69
[2020-05-30] MEDS: rivaroxaban 20mg tablet PO SCH (17:26)
[2020-05-30 18:00] VITALS: BP 106/48
--- NOTE | 2020-05-30 18:07 | NUR ---
Patient in room PCU 3021. I have received report from Jaylen BENTON and had the opportunity to ask questions and assume patient care.
--- NOTE | 2020-05-30 18:07 | NUR ---
Problems reprioritized. Patient report given, questions answered & plan of care reviewed with SERENITY Obregon.
[2020-05-30] MEDS: Melatonin 3mg tablet PO SCH (20:38)
[2020-05-30 22:00] VITALS: BP 127/76
[2020-05-31] MEDS: diltiazem 30mg tablet PO SCH ×3 (01:09→15:30)
[2020-05-31 02:00] VITALS: BP 132/81
--- NOTE | 2020-05-31 06:22 | NUR ---
Problems reprioritized. Patient report given, questions answered & plan of care reviewed with Marilu BENTON.
--- NOTE | 2020-05-31 06:23 | NUR ---
Patient in room PCU 3021. I have received report from SERENITY Obregon and had the opportunity to ask questions and assume patient care.
[2020-05-31 06:59] LABS: BASOPHILS % (AUTO) 0.5 % (0-1); EOSINOPHILS % (AUTO) 0 % (0-6); HEMATOCRIT 47.5 % (35.0-45.0); HEMOGLOBIN 15.4 g/dl (12.0-16.0); LYMPHOCYTES # (AUTO) 0.8 X10'3 (1.1-4.8); LYMPHOCYTES % (AUTO) 10.8 % (21-51); MEAN CORPUSCULAR HEMOGLOBIN 29.5 PG (27.0-31.0); MEAN CORPUSCULAR HGB CONC 32.4 g/dL (33.0-36.5); MEAN CORPUSCULAR VOLUME 91.1 FL (78-98); MEAN PLATELET VOLUME 9.6 FL (7.4-10.4); MONOCYTES # (AUTO) 0.4 X10'3 (0-0.9); MONOCYTES % (AUTO) 5.7 % (2-12); NEUTROPHILS # (AUTO) 5.8 X10'3 (1.8-7.7); PLATELET COUNT 197 X10'3 (140-440); RED BLOOD COUNT 5.21 X10'6 (4.20-5.60); RED CELL DISTRIBUTION WIDTH 15.4 % (11.5-14.5)
[2020-05-31 07:16] LABS: ANION GAP 4 (8-16); BLOOD UREA NITROGEN 56 MG/DL (7-18); BUN/CREATININE RATIO 53.3 (6.6-38.0); CALCIUM 8.1 MG/DL (8.5-10.1); CHLORIDE 104 MMOL/L (99-107); CREATININE 1.05 MG/DL (0.40-0.90); GLUCOSE 116 MG/DL (70-104); MAGNESIUM 2.3 MG/DL (1.5-2.4); POTASSIUM 4.3 MMOL/L (3.5-5.1); SODIUM 142 MMOL/L (135-145); TOTAL CARBON DIOXIDE 33.9 MMOL/L (24-32); eGFR 51 ML/MIN
[2020-05-31 08:00] VITALS: BP 141/87
[2020-05-31] MEDS: K and/or MAG REPLACEMENT MC SCH (08:00)
[2020-05-31] MEDS: furosemide 40mg/4ml inj IV SCH (08:28)
[2020-05-31] MEDS: DEXAMETHASONE 6 MG TABLET PO SCH (08:28)
[2020-05-31 11:21] VITALS: BP 138/84
--- NOTE | 2020-05-31 12:16 | NUR ---
Received TC from dietary who states pt requesting additional food. STAN okayed pt to receive double protein TID for satiety given increased protein needs secondary to admitting dx and pt documented with mostly 100% PO intake. Will continue to follow. Addendum: 05/31/20 at [address] Amended: Links added.
[2020-05-31] MEDS ORDERED: FURO20TA4 PO (12:45)
[2020-05-31] MEDS ORDERED: POTA10TA36 PO (12:45)
[2020-05-31] MEDS ORDERED: MELA3TAB39 PO (12:45)
[2020-05-31] MEDS ORDERED: ALBU6.7H9 IH (12:45)
[2020-05-31] MEDS ORDERED: DILT120C95 PO (12:45)
[2020-05-31] MEDS ORDERED: DEXA6TAB PO (12:45)
[2020-05-31] MEDS ORDERED: RIVA20TA PO (12:45)
--- NOTE | 2020-05-31 13:25 | NUR ---
Patient in room PCU 3021. I have received report from Marilu BENTON and had the opportunity to ask questions and assume patient care.
--- NOTE | 2020-05-31 13:30 | NUR ---
Assumed care of patient, she has current discharge orders and 2 oxygen tanks in the patients room to take upon discharge. Patient is A/O X 4, ambulating to the BR without complaints of shortness of breath. Oxygen saturations are stable and she is afebrile. Asked patient if she felt ready to discharge and she stated she wanted help at home. Informed her that HH has been arranged per the orders. Explained to patient that if she felt SOB or experienced any difficulties upon discharging that she should return to the ER, or call 911 for sudden shortness of breath. Pt verbalized understanding.
[2020-05-31 15:00] VITALS: BP 127/85
--- NOTE | 2020-05-31 15:43 | NUR ---
Patient refused flu and pneumonia vaccine. RBC explained.
--- NOTE | 2020-05-31 16:44 | NUR ---
Discharge instruction/medications reviewed with patient. Explained the importance of picking up her medications and taking them as directed. Pt. was encouraged to follow up with her primary physician. Tele and PIV removed. Pt. left in stable condition.
--- NOTE | 2020-05-31 17:23 | NUR ---
Received a call from "Keila" from [facility] stating no one was answering at the mot to let the patient in. Called [facility] and was told they could drive up to the lobby and she would be let in. Explained to Charles that if there is any issues, they could call us back or return the patient to the ER if needed. Charge made aware.
== END 2020-05-31 16:30 | disposition home health service (06) | DRG 177 ==
LOC: ER 14:59 → ED HOLD 17:41 → EDBEDREQ 19:10 → PCU 3S 19:20
PROVIDERS: ADMIT Internal Medicine; ATTEND Internal Medicine
PROC: 3E0234Z Introduction of Serum, Toxoid and Vaccine into Muscle, Percutaneous Approach (ICD-10-PCS; principal; 2020-05-30)
PROC: 3E02340 Introduction of Influenza Vaccine into Muscle, Percutaneous Approach (ICD-10-PCS; 2020-05-30)
DX: U07.1 COVID-19 (principal); J12.89 Other viral pneumonia; J96.01 Acute respiratory failure with hypoxia; J44.0 Chronic obstructive pulmonary disease with (acute) lower respiratory infection; J44.1 Chronic obstructive pulmonary disease with (acute) exacerbation; I48.91 Unspecified atrial fibrillation; E78.00 Pure hypercholesterolemia, unspecified; M06.9 Rheumatoid arthritis, unspecified; B19.20 Unspecified viral hepatitis C without hepatic coma; Z60.2 Problems related to living alone; F12.90 Cannabis use, unspecified, uncomplicated; K21.9 Gastro-esophageal reflux disease without esophagitis; M19.90 Unspecified osteoarthritis, unspecified site; Z23 Encounter for immunization; Z59.0 Homelessness; Z90.710 Acquired absence of both cervix and uterus; Z82.49 Family history of ischemic heart disease and other diseases of the circulatory system; Z80.9 Family history of malignant neoplasm, unspecified
CPT/HCPCS: 36415; 71045; 71275; 80048; 80053; 80061; 80305; 80320; 82728; 83615; 83735; 83880; 84145; 84443; 84484; 85007; 85025; 85379; 85384; 86140; 87081; 87635; 93005; 94760; 96374; 97110; 97161; 97530; 97535; 99285; C9803; G0378; J1940; J3490; J8540

== ENCOUNTER 2020-06-15 10:34 | Emergency (ER) | payer MEDICARE, MEDICAID ==
[~2020-06-15] VITALS: Ht 160 cm; Wt 52.3 kg
[~2020-06-15 10:34] MED LIST changes: +ALBU6.7H9 IH; -ALBU6.7H9 INH; -ATR0.5NEB INH; -ATR0.5NEB NEB; -CEPH500C5 PO; +DEXA6TAB PO; -DILT-94 PO; +DILT120C95 PO; -DILT180C66 PO; -DIME237L2 TOP; +FURO20TA4 PO; -IBUP-1985 PO; +MELA3TAB39 PO; +POTA10TA36 PO
[2020-06-15] MEDS ORDERED: predniSONE 20 mg tablet PO ONE (10:55)
[2020-06-15 11:42] LABS: EOSINOPHILS % (AUTO) 1.2 % (0-6); HEMATOCRIT 39.3 % (35.0-45.0); HEMOGLOBIN 12.9 g/dl (12.0-16.0); LYMPHOCYTES # (AUTO) 0.6 X10'3 (1.1-4.8); LYMPHOCYTES % (AUTO) 21.1 % (21-51); MEAN CORPUSCULAR HEMOGLOBIN 29.9 PG (27.0-31.0); MEAN CORPUSCULAR HGB CONC 32.9 g/dL (33.0-36.5); MEAN CORPUSCULAR VOLUME 90.9 FL (78-98); MEAN PLATELET VOLUME 8.8 FL (7.4-10.4); MONOCYTES # (AUTO) 0.3 X10'3 (0-0.9); MONOCYTES % (AUTO) 11.3 % (2-12); NEUTROPHILS # (AUTO) 1.8 X10'3 (1.8-7.7); NEUTROPHILS % (AUTO) 65.4 % (42-75); PLATELET COUNT 149 X10'3 (140-440); RED BLOOD COUNT 4.32 X10'6 (4.20-5.60); WHITE BLOOD COUNT 2.8 X10'3 (4.5-11.0)
[2020-06-15 11:51] LABS: ALANINE AMINOTRANSFERASE 65 U/L (12-78); ALBUMIN/GLOBULIN RATIO 0.9 (1.1-1.5); ALKALINE PHOSPHATASE 119 IU/L (46-116); ANION GAP 10 (8-16); ASPARTATE AMINO TRANSFERASE 58 U/L (10-37); BILIRUBIN,TOTAL 0.5 MG/DL (0.1-1.0); BLOOD UREA NITROGEN 31 MG/DL (7-18); BUN/CREATININE RATIO 37.8 (6.6-38.0); CALCIUM 8.1 MG/DL (8.5-10.1); CHLORIDE 112 MMOL/L (99-107); CREATININE 0.82 MG/DL (0.40-0.90); GLUCOSE 102 MG/DL (70-104); POTASSIUM 4.5 MMOL/L (3.5-5.1); SODIUM 145 MMOL/L (135-145); TOTAL CARBON DIOXIDE 23.3 MMOL/L (24-32); TOTAL PROTEIN 6.2 G/DL (6.4-8.2); eGFR 68 ML/MIN
[2020-06-15] MEDS ORDERED: diltiazem 5mg/ml 5ml inj. IV ONE (12:15)
[2020-06-15] MEDS ORDERED: furosemide 40mg/4ml inj IV ONE (12:15)
[2020-06-15 12:47] VITALS: BP 128/88
[2020-06-15] MEDS ORDERED: AZIT-72 PO (12:59)
[2020-06-15] MEDS ORDERED: PRED20TA PO (12:59)
[2020-06-15 13:56] LABS: TOTAL CELLS COUNTED 100
[2020-06-15 13:58] LABS: ELLIPTOCYTES FEW; PLATELET ESTIMATE NORMAL; POLYCHROMASIA 1+; STOMATOCYTES FEW; TEAR DROP CELLS FEW
--- NOTE | 2020-06-15 14:01 | NUR ---
TC TO AUTOTRANSFUSIONIST FOR WALKER NEEDS, SINCE PATIENT IS REPORTING THAT HER WALKER WAS STOLEN RECENTLY. GAIT TESTED WITH WALKER AND WAS ABLE TO AMBULATE 50 FEET. O2 SATS MAINTAINED 92% ON ROOM AIR DURING GATE ASSESSMENT. AUTOTRANSFUSIONIST, AZALIA, RESPONDED AND STATES SHE WILL BE BRINGING WALKER HERE FOR PATIENT PRIOR TO DC.
== END 2020-06-15 14:39 | disposition home or self-care (01) ==
LOC: ER 10:35
DX: J44.1 Chronic obstructive pulmonary disease with (acute) exacerbation (principal); Z20.828 Contact with and (suspected) exposure to other viral communicable diseases; I50.9 Heart failure, unspecified; I11.0 Hypertensive heart disease with heart failure; I48.91 Unspecified atrial fibrillation; E78.00 Pure hypercholesterolemia, unspecified; K21.9 Gastro-esophageal reflux disease without esophagitis; M19.90 Unspecified osteoarthritis, unspecified site; I25.10 Atherosclerotic heart disease of native coronary artery without angina pectoris; F15.90 Other stimulant use, unspecified, uncomplicated; F12.90 Cannabis use, unspecified, uncomplicated; Z90.710 Acquired absence of both cervix and uterus; Z98.890 Other specified postprocedural states; Z72.89 Other problems related to lifestyle; Z59.0 Homelessness; Z60.9 Problem related to social environment, unspecified; Z86.2 Personal history of diseases of the blood and blood-forming organs and certain disorders involving the immune mechanism; Z86.19 Personal history of other infectious and parasitic diseases; Z86.14 Personal history of Methicillin resistant Staphylococcus aureus infection
CPT/HCPCS: 71045; 80053; 83880; 84484; 85007; 85025; 87635; 93005; 96374; 96375; 99285; C9803; J1940; J7512; J3490

== ENCOUNTER 2020-06-19 13:47 | Emergency (ER) | payer MEDICARE, MEDICAID ==
[~2020-06-19] VITALS: Ht 162.6 cm; Wt 49.0 kg
[~2020-06-19 13:47] MED LIST changes: +AZIT-72 PO; +PRED20TA PO
--- NOTE | 2020-06-19 14:39 | NUR ---
Relieving Primary RN for break. Pt laying on gurney, no signs of distress at this time.
--- NOTE | 2020-06-19 14:40 | NUR ---
Pt states she is only feeling suicidal because she is having trouble with the accounting practice manager at the place she is staying. She states she wouldnt feel this way if it werent for that. Pt states she just does not want to return there.
[2020-06-19 14:53] LABS: BASOPHILS % (AUTO) 1.1 % (0-1); EOSINOPHILS # (AUTO) 0.1 X10'3 (0-0.9); EOSINOPHILS % (AUTO) 1.8 % (0-6); HEMATOCRIT 40.5 % (35.0-45.0); HEMOGLOBIN 13.2 g/dl (12.0-16.0); LYMPHOCYTES # (AUTO) 0.7 X10'3 (1.1-4.8); LYMPHOCYTES % (AUTO) 22.6 % (21-51); MEAN CORPUSCULAR HEMOGLOBIN 29.8 PG (27.0-31.0); MEAN CORPUSCULAR HGB CONC 32.6 g/dL (33.0-36.5); MEAN CORPUSCULAR VOLUME 91.4 FL (78-98); MEAN PLATELET VOLUME 8.6 FL (7.4-10.4); MONOCYTES # (AUTO) 0.4 X10'3 (0-0.9); MONOCYTES % (AUTO) 11.5 % (2-12); NEUTROPHILS # (AUTO) 1.9 X10'3 (1.8-7.7); PLATELET COUNT 163 X10'3 (140-440); RED BLOOD COUNT 4.43 X10'6 (4.20-5.60); WHITE BLOOD COUNT 3.1 X10'3 (4.5-11.0)
--- NOTE | 2020-06-19 15:25 | NUR ---
Pt ambulatory to the restroom with her walker.
[2020-06-19 15:26] LABS: ALANINE AMINOTRANSFERASE 48 U/L (12-78); ALKALINE PHOSPHATASE 109 IU/L (46-116); ANION GAP 7 (8-16); ASPARTATE AMINO TRANSFERASE 39 U/L (10-37); BILIRUBIN,TOTAL 0.4 MG/DL (0.1-1.0); BLOOD UREA NITROGEN 32 MG/DL (7-18); BUN/CREATININE RATIO 32.7 (6.6-38.0); CALCIUM 8.3 MG/DL (8.5-10.1); CHLORIDE 108 MMOL/L (99-107); CREATININE 0.98 MG/DL (0.40-0.90); ETHANOL < 0.010 GM/DL (0.0-0.010); GLUCOSE 95 MG/DL (70-104); POTASSIUM 5.7 MMOL/L (3.5-5.1); SODIUM 142 MMOL/L (135-145); TOTAL CARBON DIOXIDE 27.1 MMOL/L (24-32); eGFR 55 ML/MIN
--- NOTE | 2020-06-19 15:45 | NUR ---
Pt located in the parking lot, walking towards [facility]. Pt assisted with her walker back to the room. Pt assisted to change into green scrubs, belongings removed and inventoried. Pt is eating chips at this time.
--- NOTE | 2020-06-19 16:35 | NUR ---
No change in condition, in line of sight of the nurse's station.
--- NOTE | 2020-06-19 17:34 | NUR ---
PT has no change, continuing to monitor.
--- NOTE | 2020-06-19 18:25 | NUR ---
Pt moved from ED bed 7 to ED overflow area for continued monitoring while [facility] results. Report given to SERENITY Stoner.
--- NOTE | 2020-06-19 18:30 | NUR ---
The patient moved to bed 20. She was cooperative with move. Meal tray given
[2020-06-19 19:25] LABS: CLARITY,URINE CLEAR (Clear); COLOR,URINE YELLOW (Yellow); GLUCOSE, URINE NEGATIVE (Neg); KETONES,URINE NEGATIVE (Neg); LEUKOCYTE ESTERASE ,URINE TRACE (Neg); NITRITES, URINE POSITIVE (Neg); OCCULT BLOOD,URINE MODERATE (Neg); PH,URINE 7.5 (4.8-8.0); PROTEIN,URINE NEGATIVE (Neg)
[2020-06-19 19:36] LABS: URINE AMPHETAMINE SCREEN NEGATIVE (Neg); URINE BARBITUATE SCREEN NEGATIVE (Neg); URINE BENZODIAZEPINES SCREEN NEGATIVE (Neg); URINE CANNABINOID SCREEN NEGATIVE (Neg); URINE COCAINE SCREEN NEGATIVE (Neg); URINE METHADONE SCREEN NEGATIVE (Neg); URINE OPIATE SCREEN NEGATIVE (Neg); URINE PHENCYCLIDINE SCREEN NEGATIVE (Neg)
[2020-06-19 19:45] LABS: UA COLLECTION TYPE CLN CATCH MIDSTREAM
[2020-06-19 19:46] LABS: RBC,URINE 0-2 /HPF (0-2); WBC,URINE 0-4 /HPF (0-4)
[2020-06-19 19:47] LABS: BACTERIA,URINE 4+ /HPF (Neg); SQUAMOUS EPITHELIAL CELL,UR MODERATE /LPF (FEW)
[2020-06-19] MEDS ORDERED: ASPI-1397 PO (19:54)
[2020-06-19] MEDS ORDERED: METO25TA6 PO (19:54)
[2020-06-19] MEDS ORDERED: DILT-35 PO (19:54)
[2020-06-19] MEDS ORDERED: ellipta INH (19:54)
[2020-06-19] MEDS ORDERED: FURO-149 PO (19:54)
[2020-06-19] MEDS ORDERED: BUDE10.2 INH (19:56)
[2020-06-19] MEDS ORDERED: RIVA20TA PO (20:01)
[2020-06-19] MEDS ORDERED: furosemide 20MG tablet PO ONE (20:10)
[2020-06-19] MEDS ORDERED: albuterol 2.5 MG/3 ML nebule NEB PRN (20:25)
[2020-06-19] MEDS ORDERED: budesonide 0.5mg/2ml UD nebule IH SCH (20:32)
[2020-06-19] MEDS: cephalexin 500mg capsule PO SCH (20:34)
[2020-06-19] MEDS: metoprolol tartrate 25mg tablet PO SCH (20:42)
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
[2020-06-19] MEDS ORDERED: diltiazem 30mg tablet PO ONE (21:05)
--- NOTE | 2020-06-19 21:32 | NUR ---
The patient appears to be sleeping.
--- NOTE | 2020-06-19 22:11 | NUR ---
Packet faxed to [facility]
--- NOTE | 2020-06-20 00:30 | NUR ---
The patient is frequently up to void after lasix. She was incontinent and was assisted with change of clothes. She has been pleasant and cooperative.
--- NOTE | 2020-06-20 03:00 | NUR ---
The patient currently appears to be sleeping but continues periodically to use the bathroom
--- NOTE | 2020-06-20 05:07 | NUR ---
The patient appears to be sleeping
[2020-06-20 06:02] VITALS: BP_DIAS 69
--- NOTE | 2020-06-20 07:00 | NUR ---
Pt is awake and asking for coffee.
[2020-06-20] MEDS ORDERED: aspirin 81mg tablet.DR PO SCH (08:00)
[2020-06-20] MEDS ORDERED: rivaroxaban 20mg tablet PO SCH (08:00)
[2020-06-20] MEDS ORDERED: non-formulary drug (Diltiazem HCl (Diltiazem 24Hr Cd) 1 CAP) PO SCH (08:00)
[2020-06-20] MEDS ORDERED: furosemide 40mg tablet PO SCH (08:00)
[2020-06-20] MEDS ORDERED: diltiazem CD 120mg capsule (once-daily) PO SCH (08:00)
[2020-06-20] MEDS: cephalexin 500mg capsule PO SCH (08:21)
[2020-06-20 08:22] VITALS: BP_SYST 113
[2020-06-20] MEDS: metoprolol tartrate 25mg tablet PO SCH (08:22)
--- NOTE | 2020-06-20 08:56 | NUR ---
[facility] with patient, evaluating
--- NOTE | 2020-06-20 09:33 | NUR ---
Jonel from [facility] states he is not placing pt on a 5150. Plan is to transport pt via cab to [facility] at 1130 where she will be assessed by an Access infrastructure technician then transported to the motel to get her things then transported to [facility].
--- NOTE | 2020-06-20 09:36 | NUR ---
cab ride is set up to [facility] for [address] [facility] cab [phone]
--- NOTE | 2020-06-20 11:28 | NUR ---
Cab is here to pick pt up and transport her to [facility], meds, valuables including cabrera, and belongings returned. Plan is for her to be transported to her motel afterwards in a van to get her belongings then [facility]
== END 2020-06-20 11:30 | disposition left against medical advice (07) ==
LOC: ER 13:47
DX: R45.851 Suicidal ideations (principal); F15.90 Other stimulant use, unspecified, uncomplicated; F12.90 Cannabis use, unspecified, uncomplicated; I48.91 Unspecified atrial fibrillation; E78.00 Pure hypercholesterolemia, unspecified; K21.9 Gastro-esophageal reflux disease without esophagitis; M19.90 Unspecified osteoarthritis, unspecified site; J44.9 Chronic obstructive pulmonary disease, unspecified; Z59.0 Homelessness; Z60.9 Problem related to social environment, unspecified; Z72.89 Other problems related to lifestyle; Z79.2 Long term (current) use of antibiotics; Z79.899 Other long term (current) drug therapy
CPT/HCPCS: 36415; 80053; 80305; 80320; 81001; 84443; 84484; 85025; 93005; 94640; 94760; 99284; 99285

== ENCOUNTER 2020-08-05 22:53 | Emergency (ER) | payer MEDICARE, MEDICAID ==
[~2020-08-05] VITALS: Ht 160 cm; Wt 63.6 kg
[~2020-08-05 22:53] MED LIST changes: +ALBU17AE26 IH; -ALBU6.7H9 IH; +ASPI-1397 PO; +ATOR20TA66 PO; -AZIT-72 PO; +BUDE10.2 INH; -DEXA6TAB PO; -DILT120C95 PO; -FURO20TA4 PO; +LACT1CAP26 PO; -MELA3TAB39 PO; +METO25TA6 PO; -POTA10TA36 PO; +PRED10TA23 PO; -PRED20TA PO; +UMEC62.5 IH
[2020-08-05] MEDS ORDERED: furosemide 40mg/4ml inj IV ONE (23:05)
[2020-08-05] MEDS ORDERED: ipratropium/albuterol 3ml nebule NEB ONE (23:05)
[2020-08-05 23:24] LABS: BASOPHILS # (AUTO) 0.1 X10'3 (0-0.2); BASOPHILS % (AUTO) 0.9 % (0-1); EOSINOPHILS # (AUTO) 0.1 X10'3 (0-0.9); EOSINOPHILS % (AUTO) 0.9 % (0-6); HEMATOCRIT 34.9 % (35.0-45.0); HEMOGLOBIN 11.4 g/dl (12.0-16.0); LYMPHOCYTES # (AUTO) 1.2 X10'3 (1.1-4.8); LYMPHOCYTES % (AUTO) 19.3 % (21-51); MEAN CORPUSCULAR HEMOGLOBIN 29.4 PG (27.0-31.0); MEAN CORPUSCULAR HGB CONC 32.6 g/dL (33.0-36.5); MEAN CORPUSCULAR VOLUME 90.1 FL (78-98); MEAN PLATELET VOLUME 8.8 FL (7.4-10.4); MONOCYTES # (AUTO) 0.3 X10'3 (0-0.9); MONOCYTES % (AUTO) 5.4 % (2-12); NEUTROPHILS # (AUTO) 4.7 X10'3 (1.8-7.7); NEUTROPHILS % (AUTO) 73.5 % (42-75); PLATELET COUNT 159 X10'3 (140-440); RED BLOOD COUNT 3.87 X10'6 (4.20-5.60); RED CELL DISTRIBUTION WIDTH 18.4 % (11.5-14.5); WHITE BLOOD COUNT 6.4 X10'3 (4.5-11.0)
[2020-08-05 23:35] LABS: ALANINE AMINOTRANSFERASE 78 U/L (12-78); ALBUMIN 2.8 G/DL (3.4-5.0); ALBUMIN/GLOBULIN RATIO 0.9 (1.1-1.5); ALKALINE PHOSPHATASE 90 IU/L (46-116); ANION GAP 8 (8-16); ASPARTATE AMINO TRANSFERASE 41 U/L (10-37); BILIRUBIN,TOTAL 0.4 MG/DL (0.1-1.0); BLOOD UREA NITROGEN 37 MG/DL (7-18); BUN/CREATININE RATIO 41.1 (6.6-38.0); CALCIUM 7.9 MG/DL (8.5-10.1); CHLORIDE 113 MMOL/L (99-107); GLUCOSE 126 MG/DL (70-104); POTASSIUM 4.3 MMOL/L (3.5-5.1); SODIUM 147 MMOL/L (135-145); TOTAL CARBON DIOXIDE 25.9 MMOL/L (24-32); eGFR 61 ML/MIN
[2020-08-05] MEDS ORDERED: metoprolol tartrate 1mg/ml inj IV ONE (23:45)
[2020-08-06 01:19] VITALS: BP 127/101
== END 2020-08-06 01:23 | disposition home or self-care (01) ==
LOC: ER 22:54
DX: R60.0 Localized edema (principal); R06.02 Shortness of breath; R05 Cough; I48.91 Unspecified atrial fibrillation; E78.00 Pure hypercholesterolemia, unspecified; J44.9 Chronic obstructive pulmonary disease, unspecified; K21.9 Gastro-esophageal reflux disease without esophagitis; M19.90 Unspecified osteoarthritis, unspecified site; F12.90 Cannabis use, unspecified, uncomplicated; F15.90 Other stimulant use, unspecified, uncomplicated; Z91.19 Patient's noncompliance with other medical treatment and regimen; Z86.19 Personal history of other infectious and parasitic diseases; Z87.440 Personal history of urinary (tract) infections; Z86.2 Personal history of diseases of the blood and blood-forming organs and certain disorders involving the immune mechanism; Z87.01 Personal history of pneumonia (recurrent); Z90.710 Acquired absence of both cervix and uterus; Z98.890 Other specified postprocedural states; Z72.89 Other problems related to lifestyle; Z60.2 Problems related to living alone; Z59.0 Homelessness; Z79.82 Long term (current) use of aspirin; Z79.899 Other long term (current) drug therapy
CPT/HCPCS: 36415; 71045; 80053; 83880; 84484; 85025; 93005; 94640; 96374; 96375; 99285; J1940; 94760; J3490

== ENCOUNTER 2020-08-07 11:05 | Emergency (ER) | payer MEDICARE, MEDICAID ==
[~2020-08-07] VITALS: Ht 121.9 cm; Wt 48.6 kg
[2020-08-07 11:19] VITALS: BP 109/84
--- NOTE | 2020-08-07 14:00 | NUR ---
PT WITH B/L DP PULSES ON DOPPLER
[2020-08-07 15:04] LABS: BASOPHILS % (AUTO) 0.7 % (0-1); EOSINOPHILS # (AUTO) 0.1 X10'3 (0-0.9); EOSINOPHILS % (AUTO) 0.9 % (0-6); HEMATOCRIT 43.9 % (35.0-45.0); HEMOGLOBIN 13.9 g/dl (12.0-16.0); LYMPHOCYTES # (AUTO) 1.4 X10'3 (1.1-4.8); LYMPHOCYTES % (AUTO) 23.9 % (21-51); MEAN CORPUSCULAR HEMOGLOBIN 29.3 PG (27.0-31.0); MEAN CORPUSCULAR HGB CONC 31.7 g/dL (33.0-36.5); MEAN CORPUSCULAR VOLUME 92.6 FL (78-98); MEAN PLATELET VOLUME 9.1 FL (7.4-10.4); MONOCYTES # (AUTO) 0.5 X10'3 (0-0.9); MONOCYTES % (AUTO) 9.1 % (2-12); NEUTROPHILS # (AUTO) 3.8 X10'3 (1.8-7.7); NEUTROPHILS % (AUTO) 65.4 % (42-75); PLATELET COUNT 182 X10'3 (140-440); RED BLOOD COUNT 4.74 X10'6 (4.20-5.60); WHITE BLOOD COUNT 5.7 X10'3 (4.5-11.0)
[2020-08-07 15:19] LABS: ALANINE AMINOTRANSFERASE 61 U/L (12-78); ALBUMIN 3.2 G/DL (3.4-5.0); ALBUMIN/GLOBULIN RATIO 0.9 (1.1-1.5); ALKALINE PHOSPHATASE 102 IU/L (46-116); ANION GAP 9 (8-16); ASPARTATE AMINO TRANSFERASE 31 U/L (10-37); BILIRUBIN,TOTAL 0.7 MG/DL (0.1-1.0); BLOOD UREA NITROGEN 30 MG/DL (7-18); BUN/CREATININE RATIO 35.7 (6.6-38.0); C-REACTIVE PROTEIN 0.19 MG/DL (0.0-0.5); CALCIUM 8.2 MG/DL (8.5-10.1); CHLORIDE 107 MMOL/L (99-107); CREATININE 0.84 MG/DL (0.40-0.90); GLUCOSE 95 MG/DL (70-104); POTASSIUM 4.5 MMOL/L (3.5-5.1); SODIUM 146 MMOL/L (135-145); TOTAL CARBON DIOXIDE 30.1 MMOL/L (24-32); TOTAL PROTEIN 6.8 G/DL (6.4-8.2); eGFR 66 ML/MIN
[2020-08-07 15:23] LABS: ANISOCYTOSIS 2+; PLATELET ESTIMATE NORMAL
[2020-08-07 15:24] LABS: ELLIPTOCYTES FEW
--- NOTE | 2020-08-07 15:45 | NUR ---
PT ABLE TO AMBULATE UNASSISTED WITH STEADY GAIT. STATED PAIN B/L FEET WITH WALKING.
== END 2020-08-07 16:22 | disposition home or self-care (01) ==
LOC: ER 11:05
DX: R60.0 Localized edema (principal); I48.91 Unspecified atrial fibrillation; I50.9 Heart failure, unspecified; E78.00 Pure hypercholesterolemia, unspecified; J44.9 Chronic obstructive pulmonary disease, unspecified; K21.9 Gastro-esophageal reflux disease without esophagitis; M19.90 Unspecified osteoarthritis, unspecified site; F17.200 Nicotine dependence, unspecified, uncomplicated; F12.90 Cannabis use, unspecified, uncomplicated; F15.90 Other stimulant use, unspecified, uncomplicated; Z87.01 Personal history of pneumonia (recurrent); Z86.2 Personal history of diseases of the blood and blood-forming organs and certain disorders involving the immune mechanism; Z86.19 Personal history of other infectious and parasitic diseases; Z87.440 Personal history of urinary (tract) infections; Z90.710 Acquired absence of both cervix and uterus; Z98.890 Other specified postprocedural states; Z72.89 Other problems related to lifestyle; Z60.2 Problems related to living alone; Z59.0 Homelessness; Z79.82 Long term (current) use of aspirin; Z79.899 Other long term (current) drug therapy
CPT/HCPCS: 36415; 80053; 85008; 85025; 85651; 86140; 99283

== ENCOUNTER 2020-08-27 17:14 | Emergency (ER) | payer MEDICARE, MEDICAID ==
[~2020-08-27] VITALS: Ht 162.6 cm; Wt 50.0 kg
[~2020-08-27 17:14] MED LIST changes: -PRED10TA23 PO
[2020-08-27 17:58] LABS: BASOPHILS # (AUTO) 0.1 X10'3 (0-0.2); BASOPHILS % (AUTO) 1.3 % (0-1); EOSINOPHILS % (AUTO) 0.6 % (0-6); HEMATOCRIT 39.9 % (35.0-45.0); HEMOGLOBIN 12.9 g/dl (12.0-16.0); LYMPHOCYTES # (AUTO) 1.8 X10'3 (1.1-4.8); LYMPHOCYTES % (AUTO) 30.5 % (21-51); MEAN CORPUSCULAR HEMOGLOBIN 29.4 PG (27.0-31.0); MEAN CORPUSCULAR HGB CONC 32.3 g/dL (33.0-36.5); MONOCYTES # (AUTO) 0.8 X10'3 (0-0.9); MONOCYTES % (AUTO) 13.5 % (2-12); NEUTROPHILS # (AUTO) 3.1 X10'3 (1.8-7.7); NEUTROPHILS % (AUTO) 54.1 % (42-75); PLATELET COUNT 198 X10'3 (140-440); RED BLOOD COUNT 4.39 X10'6 (4.20-5.60); RED CELL DISTRIBUTION WIDTH 18.2 % (11.5-14.5); WHITE BLOOD COUNT 5.8 X10'3 (4.5-11.0)
[2020-08-27 18:15] LABS: ALANINE AMINOTRANSFERASE 55 U/L (12-78); ALBUMIN 3.1 G/DL (3.4-5.0); ALBUMIN/GLOBULIN RATIO 0.9 (1.1-1.5); ALKALINE PHOSPHATASE 99 IU/L (46-116); ANION GAP 5 (8-16); ASPARTATE AMINO TRANSFERASE 47 U/L (10-37); BILIRUBIN,TOTAL 0.4 MG/DL (0.1-1.0); BLOOD UREA NITROGEN 32 MG/DL (7-18); BUN/CREATININE RATIO 29.9 (6.6-38.0); CALCIUM 8.3 MG/DL (8.5-10.1); CHLORIDE 109 MMOL/L (99-107); CREATININE 1.07 MG/DL (0.40-0.90); GLUCOSE 57 MG/DL (70-104); POTASSIUM 3.9 MMOL/L (3.5-5.1); SODIUM 145 MMOL/L (135-145); TOTAL CARBON DIOXIDE 31.2 MMOL/L (24-32); TOTAL PROTEIN 6.7 G/DL (6.4-8.2); eGFR 50 ML/MIN
--- NOTE | 2020-08-27 18:23 | NUR ---
injection maintenance technician at bedside.
[2020-08-27 18:34] LABS: CLARITY,URINE SLIGHTLY CLOUDY (Clear); COLOR,URINE STRAW (Yellow); GLUCOSE, URINE NEGATIVE (Neg); KETONES,URINE NEGATIVE (Neg); LEUKOCYTE ESTERASE ,URINE NEGATIVE (Neg); NITRITES, URINE POSITIVE (Neg); OCCULT BLOOD,URINE NEGATIVE (Neg); PH,URINE 5.5 (4.8-8.0); PROTEIN,URINE NEGATIVE (Neg)
[2020-08-27 18:38] LABS: UA COLLECTION TYPE STRAIGHT CATH
[2020-08-27] MEDS ORDERED: CEPH250T PO (18:38)
[2020-08-27 18:40] LABS: URINE AMPHETAMINE SCREEN POSITIVE (Neg); URINE BARBITUATE SCREEN NEGATIVE (Neg); URINE BENZODIAZEPINES SCREEN NEGATIVE (Neg); URINE CANNABINOID SCREEN NEGATIVE (Neg); URINE COCAINE SCREEN NEGATIVE (Neg); URINE METHADONE SCREEN NEGATIVE (Neg); URINE OPIATE SCREEN NEGATIVE (Neg); URINE PHENCYCLIDINE SCREEN NEGATIVE (Neg)
[2020-08-27 18:45] LABS: BACTERIA,URINE 4+ /HPF (Neg); MUCUS STRANDS NONE SEEN /LPF (Neg); RBC,URINE NONE SEEN /HPF (0-2); SQUAMOUS EPITHELIAL CELL,UR FEW /LPF (FEW); TRANSITIONAL EPI CELLS,URINE FEW /HPF; WBC CLUMPS,URINE FEW /HPF (NEGATIVE); WBC,URINE 0-4 /HPF (0-4)
[2020-08-27 18:57] VITALS: BP 112/74
== END 2020-08-27 18:59 | disposition home or self-care (01) ==
LOC: ER 17:14
DX: I48.91 Unspecified atrial fibrillation (principal); J44.9 Chronic obstructive pulmonary disease, unspecified; Z79.82 Long term (current) use of aspirin; Z79.2 Long term (current) use of antibiotics; Z79.899 Other long term (current) drug therapy; F12.90 Cannabis use, unspecified, uncomplicated; F15.90 Other stimulant use, unspecified, uncomplicated; I50.9 Heart failure, unspecified; E78.00 Pure hypercholesterolemia, unspecified; K21.9 Gastro-esophageal reflux disease without esophagitis; M19.90 Unspecified osteoarthritis, unspecified site; M81.0 Age-related osteoporosis without current pathological fracture; Z72.89 Other problems related to lifestyle; Z59.0 Homelessness; I87.8 Other specified disorders of veins; L03.115 Cellulitis of right lower limb
CPT/HCPCS: 36415; 80053; 80305; 81001; 85025; 87077; 87088; 87186; 93971; 99284

== ENCOUNTER 2020-09-21 17:41 | Emergency (ER) | payer MEDICARE, MEDICAID ==
[~2020-09-21] VITALS: Ht 160 cm; Wt 54.5 kg
[2020-09-21] MEDS ORDERED: furosemide 20MG tablet PO ONE (18:25)
[2020-09-21 18:47] VITALS: BP 109/78
--- NOTE | 2020-09-21 19:00 | NUR ---
Patient is restless and uncooperative when trying to obtain doppler of bilateral feet, unable to perform test.
--- NOTE | 2020-09-21 19:19 | NUR ---
Called for ride home: [place] [phone]. Went to [facility].
== END 2020-09-21 20:30 | disposition home or self-care (01) ==
LOC: ER 17:42
DX: R60.1 Generalized edema (principal); I48.91 Unspecified atrial fibrillation; I50.9 Heart failure, unspecified; I11.0 Hypertensive heart disease with heart failure; E78.00 Pure hypercholesterolemia, unspecified; J44.9 Chronic obstructive pulmonary disease, unspecified; K21.9 Gastro-esophageal reflux disease without esophagitis; M19.90 Unspecified osteoarthritis, unspecified site; M06.9 Rheumatoid arthritis, unspecified; F12.90 Cannabis use, unspecified, uncomplicated; F15.90 Other stimulant use, unspecified, uncomplicated; Z87.01 Personal history of pneumonia (recurrent); Z86.19 Personal history of other infectious and parasitic diseases; Z86.2 Personal history of diseases of the blood and blood-forming organs and certain disorders involving the immune mechanism; Z87.442 Personal history of urinary calculi; Z90.710 Acquired absence of both cervix and uterus; Z59.0 Homelessness; Z79.82 Long term (current) use of aspirin; Z79.899 Other long term (current) drug therapy
CPT/HCPCS: 99283

== ENCOUNTER 2020-10-12 08:42 | Emergency (ER) | payer MEDICARE, MEDICAID ==
[~2020-10-12] VITALS: Ht 160 cm; Wt 60.0 kg
[~2020-10-12 08:42] MED LIST changes: +LOP25T PO; -METO25TA6 PO
[2020-10-12 09:09] LABS: BASOPHILS % (AUTO) 1.3 % (0-1); EOSINOPHILS # (AUTO) 0.1 X10'3 (0-0.9); HEMATOCRIT 42.2 % (35.0-45.0); HEMOGLOBIN 13.6 g/dl (12.0-16.0); LYMPHOCYTES % (AUTO) 27.2 % (21-51); MEAN CORPUSCULAR HEMOGLOBIN 28.5 PG (27.0-31.0); MEAN CORPUSCULAR HGB CONC 32.2 g/dL (33.0-36.5); MEAN CORPUSCULAR VOLUME 88.6 FL (78-98); MEAN PLATELET VOLUME 8.5 FL (7.4-10.4); MONOCYTES # (AUTO) 0.4 X10'3 (0-0.9); MONOCYTES % (AUTO) 12.3 % (2-12); NEUTROPHILS % (AUTO) 56.2 % (42-75); PLATELET COUNT 193 X10'3 (140-440); RED BLOOD COUNT 4.76 X10'6 (4.20-5.60); RED CELL DISTRIBUTION WIDTH 17.1 % (11.5-14.5); WHITE BLOOD COUNT 3.5 X10'3 (4.5-11.0)
[2020-10-12 09:23] LABS: ALANINE AMINOTRANSFERASE 74 U/L (12-78); ALBUMIN/GLOBULIN RATIO 0.8 (1.1-1.5); ALKALINE PHOSPHATASE 102 IU/L (46-116); ANION GAP 6 (8-16); ASPARTATE AMINO TRANSFERASE 73 U/L (10-37); BILIRUBIN,TOTAL 0.4 MG/DL (0.1-1.0); BLOOD UREA NITROGEN 32 MG/DL (7-18); BUN/CREATININE RATIO 31.4 (6.6-38.0); CALCIUM 7.9 MG/DL (8.5-10.1); CHLORIDE 106 MMOL/L (99-107); CREATININE 1.02 MG/DL (0.40-0.90); POTASSIUM 4.6 MMOL/L (3.5-5.1); SODIUM 142 MMOL/L (135-145); TOTAL CARBON DIOXIDE 30.3 MMOL/L (24-32); TOTAL PROTEIN 6.9 G/DL (6.4-8.2); eGFR 53 ML/MIN
[2020-10-12 09:24] LABS: GLUCOSE 153 MG/DL (70-104)
[2020-10-12 09:27] LABS: TROPONIN I < 0.04 NG/ML (0.0-0.05)
[2020-10-12 10:32] LABS: CLARITY,URINE CLEAR (Clear); COLOR,URINE YELLOW (Yellow); GLUCOSE, URINE NEGATIVE (Neg); KETONES,URINE NEGATIVE (Neg); LEUKOCYTE ESTERASE ,URINE NEGATIVE (Neg); NITRITES, URINE POSITIVE (Neg); OCCULT BLOOD,URINE NEGATIVE (Neg); PH,URINE 5.5 (4.8-8.0); PROTEIN,URINE NEGATIVE (Neg); UROBILINOGEN,URINE 0.2 E.U/dL (0.2-1.0)
[2020-10-12 10:33] LABS: UA COLLECTION TYPE STRAIGHT CATH
[2020-10-12 10:36] LABS: BACTERIA,URINE 4+ /HPF (Neg); MUCUS STRANDS NONE SEEN /LPF (Neg); RBC,URINE NONE SEEN /HPF (0-2); SQUAMOUS EPITHELIAL CELL,UR FEW /LPF (FEW); WBC,URINE NONE SEEN /HPF (0-4)
[2020-10-12] MEDS ORDERED: normal saline 1000ML IV soln IVB ONE (10:45)
[2020-10-12] MEDS ORDERED: CEPH-585 PO (10:58)
[2020-10-12] MEDS ORDERED: CefTRIAXone/D5W-Rocephin 1gm 50 ML IV ONE (11:00)
[2020-10-12 12:33] VITALS: BP 118/78
== END 2020-10-12 12:37 | disposition home or self-care (01) ==
LOC: ER 08:42
DX: N39.0 Urinary tract infection, site not specified (principal); E86.0 Dehydration; R05 Cough; I48.91 Unspecified atrial fibrillation; I50.9 Heart failure, unspecified; E78.00 Pure hypercholesterolemia, unspecified; J44.9 Chronic obstructive pulmonary disease, unspecified; K21.9 Gastro-esophageal reflux disease without esophagitis; M19.90 Unspecified osteoarthritis, unspecified site; F17.210 Nicotine dependence, cigarettes, uncomplicated; F12.90 Cannabis use, unspecified, uncomplicated; F15.90 Other stimulant use, unspecified, uncomplicated; Z86.19 Personal history of other infectious and parasitic diseases; Z86.2 Personal history of diseases of the blood and blood-forming organs and certain disorders involving the immune mechanism; Z90.710 Acquired absence of both cervix and uterus; Z72.89 Other problems related to lifestyle; Z60.2 Problems related to living alone; Z59.0 Homelessness; Z98.890 Other specified postprocedural states; Z79.82 Long term (current) use of aspirin; Z79.899 Other long term (current) drug therapy
CPT/HCPCS: 36415; 71045; 80053; 81001; 84145; 84484; 85025; 87077; 87088; 87186; 93005; 96365; 99285; J0696; J7030

== ENCOUNTER 2020-11-01 16:11 | Emergency (ER) | payer MEDICARE, MEDICAID ==
[~2020-11-01] VITALS: Ht 160 cm; Wt 59.1 kg
[~2020-11-01 16:11] MED LIST changes: +CEPH-585 PO
[2020-11-01] MEDS ORDERED: ondansetron/PF 4mg/2ml inj IV ONE (16:55)
[2020-11-01] MEDS ORDERED: normal saline 1000ML IV soln IVB ONE (16:55)
[2020-11-01] MEDS ORDERED: morphine 4 MG/ML inj SYRINge IV PRN (16:55)
[2020-11-01 17:29] LABS: BASOPHILS % (AUTO) 0.8 % (0-1); EOSINOPHILS # (AUTO) 0.1 X10'3 (0-0.9); EOSINOPHILS % (AUTO) 2.5 % (0-6); HEMATOCRIT 34.3 % (35.0-45.0); HEMOGLOBIN 11.3 g/dl (12.0-16.0); LYMPHOCYTES # (AUTO) 0.6 X10'3 (1.1-4.8); LYMPHOCYTES % (AUTO) 14.1 % (21-51); MEAN CORPUSCULAR HEMOGLOBIN 29.7 PG (27.0-31.0); MEAN CORPUSCULAR VOLUME 89.9 FL (78-98); MEAN PLATELET VOLUME 8.9 FL (7.4-10.4); MONOCYTES # (AUTO) 0.6 X10'3 (0-0.9); NEUTROPHILS % (AUTO) 68.6 % (42-75); PLATELET COUNT 139 X10'3 (140-440); RED BLOOD COUNT 3.81 X10'6 (4.20-5.60); RED CELL DISTRIBUTION WIDTH 17.2 % (11.5-14.5); WHITE BLOOD COUNT 4.3 X10'3 (4.5-11.0)
[2020-11-01 17:30] VITALS: BP 118/73
[2020-11-01 17:31] LABS: CLARITY,URINE CLEAR (Clear); COLOR,URINE YELLOW (Yellow); GLUCOSE, URINE NEGATIVE (Neg); KETONES,URINE NEGATIVE (Neg); LEUKOCYTE ESTERASE ,URINE NEGATIVE (Neg); NITRITES, URINE POSITIVE (Neg); OCCULT BLOOD,URINE NEGATIVE (Neg); PH,URINE 5.5 (4.8-8.0); PROTEIN,URINE NEGATIVE (Neg)
[2020-11-01 17:35] LABS: UA COLLECTION TYPE STRAIGHT CATH
[2020-11-01 17:36] LABS: BACTERIA,URINE 3+ /HPF (Neg); MUCUS STRANDS FEW /LPF (Neg); RBC,URINE NONE SEEN /HPF (0-2); SQUAMOUS EPITHELIAL CELL,UR NONE SEEN /LPF (FEW); WBC,URINE NONE SEEN /HPF (0-4)
[2020-11-01 17:47] LABS: ALANINE AMINOTRANSFERASE 36 U/L (12-78); ALBUMIN 2.3 G/DL (3.4-5.0); ALBUMIN/GLOBULIN RATIO 0.7 (1.1-1.5); ALKALINE PHOSPHATASE 84 IU/L (46-116); ANION GAP 7 (8-16); ASPARTATE AMINO TRANSFERASE 40 U/L (10-37); BILIRUBIN,TOTAL 0.5 MG/DL (0.1-1.0); BLOOD UREA NITROGEN 17 MG/DL (7-18); BUN/CREATININE RATIO 24.6 (6.6-38.0); CALCIUM 7.3 MG/DL (8.5-10.1); CHLORIDE 109 MMOL/L (99-107); CREATININE 0.69 MG/DL (0.40-0.90); GLUCOSE 131 MG/DL (70-104); LIPASE 127 U/L (73-393); POTASSIUM 3.8 MMOL/L (3.5-5.1); SODIUM 142 MMOL/L (135-145); TOTAL CARBON DIOXIDE 25.9 MMOL/L (24-32); TOTAL PROTEIN 5.6 G/DL (6.4-8.2); eGFR 82 ML/MIN
[2020-11-01] MEDS ORDERED: TRAM50TA2 PO (18:18)
[2020-11-01] MEDS ORDERED: ONDA4TAB6 PO (18:18)
== END 2020-11-01 20:30 | disposition home or self-care (01) ==
LOC: ER 16:12
DX: A08.4 Viral intestinal infection, unspecified (principal); I48.91 Unspecified atrial fibrillation; E78.00 Pure hypercholesterolemia, unspecified; J44.9 Chronic obstructive pulmonary disease, unspecified; K21.9 Gastro-esophageal reflux disease without esophagitis; R30.0 Dysuria; M19.90 Unspecified osteoarthritis, unspecified site; F12.90 Cannabis use, unspecified, uncomplicated; F15.90 Other stimulant use, unspecified, uncomplicated; Z86.2 Personal history of diseases of the blood and blood-forming organs and certain disorders involving the immune mechanism; Z86.19 Personal history of other infectious and parasitic diseases; Z90.710 Acquired absence of both cervix and uterus; Z98.890 Other specified postprocedural states; Z72.89 Other problems related to lifestyle; Z60.2 Problems related to living alone; Z59.0 Homelessness; Z79.82 Long term (current) use of aspirin; Z79.899 Other long term (current) drug therapy
CPT/HCPCS: 36415; 71045; 74176; 80053; 81001; 83690; 85025; 87077; 87088; 87186; 93005; 96361; 96374; 99285; J2405; J7030

== ENCOUNTER 2020-12-24 13:29 | Emergency (ER) | payer MEDICARE, MEDICAID ==
[~2020-12-24] VITALS: Ht 160 cm; Wt 55.0 kg
[~2020-12-24 13:29] MED LIST changes: +ONDA4TAB6 PO
[2020-12-24 13:51] VITALS: BP 139/95
[2020-12-24 14:45] LABS: CLARITY,URINE CLOUDY (Clear); COLOR,URINE YELLOW (Yellow); GLUCOSE, URINE NEGATIVE (Neg); KETONES,URINE NEGATIVE (Neg); LEUKOCYTE ESTERASE ,URINE TRACE (Neg); NITRITES, URINE POSITIVE (Neg); OCCULT BLOOD,URINE NEGATIVE (Neg); PROTEIN,URINE NEGATIVE (Neg)
[2020-12-24 15:00] LABS: UA COLLECTION TYPE CLN CATCH MIDSTREAM
[2020-12-24 15:03] LABS: BACTERIA,URINE 4+ /HPF (Neg); MUCUS STRANDS NONE SEEN /LPF (Neg); RBC,URINE NONE SEEN /HPF (0-2); SQUAMOUS EPITHELIAL CELL,UR MANY /LPF (FEW); WBC,URINE 0-4 /HPF (0-4)
[2020-12-24] MEDS ORDERED: CEPH250T PO (15:32)
== END 2020-12-24 16:01 | disposition home or self-care (01) ==
LOC: ER 13:32
DX: N39.0 Urinary tract infection, site not specified (principal); I50.9 Heart failure, unspecified; E78.00 Pure hypercholesterolemia, unspecified; J44.9 Chronic obstructive pulmonary disease, unspecified; K21.9 Gastro-esophageal reflux disease without esophagitis; D64.9 Anemia, unspecified; F12.10 Cannabis abuse, uncomplicated; F15.10 Other stimulant abuse, uncomplicated; Z56.0 Unemployment, unspecified
CPT/HCPCS: 71045; 81001; 99284

== ENCOUNTER 2021-01-02 12:09 | Emergency (ER) | payer MEDICARE, MEDICAID ==
[~2021-01-02] VITALS: Ht 162.6 cm; Wt 55.0 kg
[2021-01-02 12:20] VITALS: BP 141/84
[2021-01-02] MEDS ORDERED: ketorolac tromethamine 15mg/ml inj. IM ONE (14:00)
[2021-01-02] MEDS ORDERED: ACET-1025 PO (14:09)
--- NOTE | 2021-01-02 14:46 | NUR ---
Patient seen and assessed by provider.
== END 2021-01-02 14:46 | disposition home or self-care (01) ==
LOC: ER 12:10
DX: M25.462 Effusion, left knee (principal); M25.562 Pain in left knee; I48.91 Unspecified atrial fibrillation; I50.9 Heart failure, unspecified; E78.00 Pure hypercholesterolemia, unspecified; J44.9 Chronic obstructive pulmonary disease, unspecified; K21.9 Gastro-esophageal reflux disease without esophagitis; M19.90 Unspecified osteoarthritis, unspecified site; F12.90 Cannabis use, unspecified, uncomplicated; F15.90 Other stimulant use, unspecified, uncomplicated; Z86.19 Personal history of other infectious and parasitic diseases; Z86.2 Personal history of diseases of the blood and blood-forming organs and certain disorders involving the immune mechanism; Z87.01 Personal history of pneumonia (recurrent); Z90.710 Acquired absence of both cervix and uterus; Z98.890 Other specified postprocedural states; Z72.89 Other problems related to lifestyle; Z60.2 Problems related to living alone; Z59.0 Homelessness; Z79.82 Long term (current) use of aspirin; Z79.2 Long term (current) use of antibiotics; Z79.899 Other long term (current) drug therapy
CPT/HCPCS: 29505; 73564; 96372; 99283; J1885

== ENCOUNTER 2021-01-03 20:09 | Emergency (ER) | payer MEDICARE, MEDICAID ==
[~2021-01-03] VITALS: Ht 157.5 cm; Wt 56.0 kg
[~2021-01-03 20:09] MED LIST changes: +ACET-1025 PO
[2021-01-03 20:15] VITALS: BP 149/94
[2021-01-03] MEDS ORDERED: acetaminophen 325mg tablet PO ONE (22:50)
== END 2021-01-03 23:29 | disposition home or self-care (01) ==
LOC: ER 20:09
DX: M25.462 Effusion, left knee (principal); M25.562 Pain in left knee; R26.89 Other abnormalities of gait and mobility; I48.91 Unspecified atrial fibrillation; E78.00 Pure hypercholesterolemia, unspecified; I50.9 Heart failure, unspecified; J44.9 Chronic obstructive pulmonary disease, unspecified; K21.9 Gastro-esophageal reflux disease without esophagitis; M19.90 Unspecified osteoarthritis, unspecified site; F12.90 Cannabis use, unspecified, uncomplicated; F15.90 Other stimulant use, unspecified, uncomplicated; Z59.0 Homelessness; Z87.440 Personal history of urinary (tract) infections; Z86.19 Personal history of other infectious and parasitic diseases; Z90.710 Acquired absence of both cervix and uterus; Z98.890 Other specified postprocedural states; Z87.01 Personal history of pneumonia (recurrent); Z79.82 Long term (current) use of aspirin; Z79.899 Other long term (current) drug therapy
CPT/HCPCS: 99284

== ENCOUNTER 2021-01-18 16:18 | Emergency (ER) | payer MEDICARE, MEDICAID ==
[~2021-01-18 16:18] MED LIST changes: -ACET-1025 PO
[2021-01-18] MEDS ORDERED: TERB30CR8 TP (18:21)
[2021-01-18 18:30] VITALS: BP 145/65
== END 2021-01-18 18:31 | disposition home or self-care (01) ==
LOC: ER 16:19
DX: B35.3 Tinea pedis (principal); R23.4 Changes in skin texture; I48.91 Unspecified atrial fibrillation; I11.0 Hypertensive heart disease with heart failure; I50.9 Heart failure, unspecified; E78.00 Pure hypercholesterolemia, unspecified; J44.9 Chronic obstructive pulmonary disease, unspecified; K21.9 Gastro-esophageal reflux disease without esophagitis; F12.90 Cannabis use, unspecified, uncomplicated; F15.90 Other stimulant use, unspecified, uncomplicated; Z87.01 Personal history of pneumonia (recurrent); Z86.19 Personal history of other infectious and parasitic diseases; Z87.442 Personal history of urinary calculi; Z72.89 Other problems related to lifestyle; Z59.0 Homelessness; Z90.710 Acquired absence of both cervix and uterus; M06.9 Rheumatoid arthritis, unspecified; Z79.82 Long term (current) use of aspirin; Z79.899 Other long term (current) drug therapy
CPT/HCPCS: 99283